=== PATIENT | male | born 1970 | race Caucasian/White ===

== ENCOUNTER 2017-10-19 14:02 | Emergency (ER) | payer BC, MEDICAID ==
[~2017-10-19] VITALS: Ht 175.3 cm; Wt 104.3 kg
[~2017-10-19 14:02] MED LIST: ASPIRIN 81 MG CHEW (CHILDREN'S ASA) ONE; HYDR-757 PO; LISI1TAB8 PO
--- OUTSIDE RECORDS SUMMARY | 2017-10-19 14:08 | XMS REPORT | Continuity of Care Document ---
Author Author [facility] Organization [facility] Address Unknown Phone Unavailable Allergies Active Description Code Type Severity Reaction Onset Reported/Identified Relationship to Patient Clinical Status Yes No Known Drug Allergies [id number] Drug Allergy Unknown N/A 06/24/2014 Medications There is no data. Problems Date Dx Coded Attending Type Code Diagnosis Diagnosed By 01/19/2008 EDWARDO STEWART DO 070.54 HEPATITIS C CHRONIC 01/19/2008 EDWARDO STEWART DO 401.1 HYPERTENSION, BENIGN ESSENTIAL 01/19/2008 EDWARDO STEWART DO 493.92 ASTHMA (ACUTE) EXACERBATION 03/01/2008 EDWARDO STEWART DO 724.5 BACKACHE UNSPECIFIED 06/24/2014 FERNANDEZ ENRIQUE APRN Ot 401.9 06/29/2014 EDWARDO STEWART DO 723.1 CERVICALGIA 06/29/2014 EDWARDO STEWART DO 790.29 OTHER ABNORMAL GLUCOSE Procedures There is no data. Results There is no data. Encounters ACCT No. Visit Date/Time Discharge Status Pt. Type Provider Facility Loc./Unit Complaint [id number] 06/24/2014 11:40:00 06/24/2014 13:02:00 DIS Emergency FERNANDEZ ENRIQUE APRN [facility] ER [id number] 06/24/2014 11:41:00 ACT Document Registration [id number] 06/29/2014 15:28:00 06/29/2014 23:59:59 [place] [id number] 10/13/2017 12:15:00 10/13/2017 23:59:59 CLS Outpatient STEPHANE AMAYA APRN [facility]
--- NOTE | 2017-10-19 14:29 | ED Chest Pain ---
General Chief Complaint: Chest Pain Stated Complaint: CHEST PAIN,FACIAL NUMBNESS Source: patient, family Exam Limitations: no limitations History of Present Illness Date Seen by Provider: October 19, 2017 Time Seen by Provider: 14:14 Initial Comments The patient presents to the ER by private conveyance with his and children. He was driving home from [place] when he started about 45 minutes ago to have all of her chest pain both arms hurting without radiation to his jaw or neck. He felt like he was working very hard to breathe very fast and was feeling numbness and tingling around the mouth. He does not have a history of lung disease such as asthma or COPD nor does he have a known history of coronary artery disease. He does have a known history of hypertension and he is been told that he is prediabetic. He does not follow with Dr. Bautista for over a year now and has not been on any medications for at least this long. He does not have any primary family history of early coronary disease however his dad did have heart attacks and strokes in his 60s. 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 He denies a history of anxiety disorder. He was previously prescribed hydrochlorothiazide and lisinopril according to records. He does not know if he has any thyroid disorder, hypercholesterolemia. Allergies and Home Medications Allergies Coded Allergies: No Known Drug Allergies (Unverified , 06/24/14) Home Medications Hydrocodone Bit/Acetaminophen 1 Each Tablet, 1 EA PO Q6H PRN for MILD PAIN Prescribed by: FERNANDEZ ENRIUQE on 06/24/14 1250 Lisinopril/Hydrochlorothiazide 1 Tab Tablet, 1 TAB PO DAILY Prescribed by: FERNANDEZ ENRIQUE on 06/24/14 1250 Patient Home Medication List Home Medication List Reviewed: Yes Review of Systems Constitutional: No chills, No diaphoresis EENTM: No Blurred Vision, No Double Vision Respiratory: Shortness of Air, SOA at Rest; Denies Wheezing Cardiovascular: See HPI, Chest Pain (all over, worse with deep inspiration); Denies Palpitations Gastrointestinal: Denies Abdomen Distended, Denies Constipated, Denies Diarrhea , Denies Nausea Musculoskeletal: No back pain, No joint pain Skin: No pruritus, No rash Psychiatric/Neurological: Denies Headache, Denies Numbness Past Jltliza-Sulssa-Drwfzy Hx Patient Social History Alcohol Use: Denies Use Recreational Drug Use: Yes 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 Smoking Status: Never a Smoker Seasonal Allergies Seasonal Allergies: No Past Medical History Hypertension Headaches /Migraines Chronic Back Pain Physical Exam Vital Signs Vital Signs - First Documented 10/19/17 14:02 Temp 97.8 Pulse 78 Resp 26 B/P (MAP) 214/128 (156) Pulse Ox 99 O2 Delivery Room Air Capillary Refill : General Appearance: WD/WN, Anxious HEENT: PERRL/EOMI, Normal ENT Inspection, Pharynx Normal Neck: Full Range of Motion, Non Tender, Supple Respiratory: Lungs Clear, Normal Breath Sounds, No Accessory Muscle Use, No Respiratory Distress, Other (chest pain is reproducible by direct palpation to anterior sternum and ribs) Cardiovascular: Regular Rate, Rhythm, No Edema Gastrointestinal: Normal Bowel Sounds, Non Tender, Soft Extremity: Normal Capillary Refill, Non Tender, No Pedal Edema Neurologic/Psychiatric: Alert, Oriented x3 Skin: Normal Color, Diaphoresis Progress/Results/Core Measures Results/Orders Lab Results Laboratory Tests Test 10/19/17 14:25 10/19/17 14:55 10/19/17 16:37 Range/Units White Blood Count 7.3 4.3-11.0 10^3/uL Red Blood Count 5.42 4.35-5.85 10^6/uL Hemoglobin 15.5 13.3-17.7 G/DL Hematocrit 44 40-54 % Mean Corpuscular Volume 81 80-99 FL Mean Corpuscular Hemoglobin 29 25-34 PG Mean Corpuscular Hemoglobin Concent 36 32-36 G/DL Red Cell Distribution Width 13.5 10.0-14.5 % Platelet Count 215 130-400 10^3/uL Mean Platelet Volume 9.9 7.4-10.4 FL Neutrophils (%) (Auto) 61 42-75 % Lymphocytes (%) (Auto) 29 12-44 % Monocytes (%) (Auto) 7 0-12 % Eosinophils (%) (Auto) 2 0-10 % Basophils (%) (Auto) 0 0-10 % Neutrophils # (Auto) 4.5 1.8-7.8 X 10^3 Lymphocytes # (Auto) 2.1 1.0-4.0 X 10^3 Monocytes # (Auto) 0.5 0.0-1.0 X 10^3 Eosinophils # (Auto) 0.2 0.0-0.3 10^3/uL Basophils # (Auto) 0.0 0.0-0.1 10^3/uL Prothrombin Time 12.0 L 12.2-14.7 SEC INR Comment 0.9 0.8-1.4 Activated Partial Thromboplast Time 25 24-35 SEC D-Dimer < 0.27 0.00-0.49 UG/ML Sodium Level 135 135-145 MMOL/L Potassium Level 3.8 3.6-5.0 MMOL/L Chloride Level 99 98-107 MMOL/L Carbon Dioxide Level 20 L 21-32 MMOL/L Anion Gap 16 H 5-14 MMOL/L Blood Urea Nitrogen 13 7-18 MG/DL Creatinine 0.97 0.60-1.30 MG/DL Estimat Glomerular Filtration Rate > 60 BUN/Creatinine Ratio 13 Glucose Level 467 *H 70-105 MG/DL Calcium Level 9.9 8.5-10.1 MG/DL Magnesium Level 1.8 1.8-2.4 MG/DL Total Bilirubin 0.6 0.1-1.0 MG/DL Aspartate Amino Transf (AST/SGOT) 14 5-34 U/L Alanine Aminotransferase (ALT/SGPT) 33 0-55 U/L Alkaline Phosphatase 70 40-136 U/L Myoglobin 18.3 10.0-92.0 NG/ML Troponin I < 0.30 < 0.30 <0.30 NG/ML Total Protein 7.9 6.4-8.2 GM/DL Albumin 4.7 H 3.2-4.5 GM/DL Urine Color YELLOW Urine Clarity CLEAR Urine pH 5 5-9 Urine Specific Clark 1.020 1.016-1.022 Urine Protein 2+ H NEGATIVE Urine Glucose (UA) 4+ H NEGATIVE Urine Ketones NEGATIVE NEGATIVE Urine Nitrite NEGATIVE NEGATIVE Urine Bilirubin NEGATIVE NEGATIVE Urine Urobilinogen NORMAL NORMAL MG/DL Urine Leukocyte Esterase NEGATIVE NEGATIVE Urine RBC (Auto) NEGATIVE NEGATIVE Urine RBC NONE /HPF Urine WBC NONE /HPF Urine Squamous Epithelial Cells RARE /HPF Urine Crystals NONE /LPF Urine Bacteria NEGATIVE /HPF Urine Casts NONE /LPF Urine Mucus NEGATIVE /LPF Urine Culture Indicated NO Urine Opiates Screen NEGATIVE NEGATIVE Urine Oxycodone Screen NEGATIVE NEGATIVE Urine Methadone Screen NEGATIVE NEGATIVE Urine Propoxyphene Screen NEGATIVE NEGATIVE Urine Barbiturates Screen NEGATIVE NEGATIVE Ur Tricyclic Antidepressants Screen NEGATIVE NEGATIVE Urine Phencyclidine Screen NEGATIVE NEGATIVE Urine Amphetamines Screen NEGATIVE NEGATIVE Urine Methamphetamines Screen NEGATIVE NEGATIVE Urine Benzodiazepines Screen NEGATIVE NEGATIVE Urine Cocaine Screen NEGATIVE NEGATIVE Urine Cannabinoids Screen NEGATIVE NEGATIVE My Orders Orders - SHIRIN MATHEWS Ekg Tracing (10/19/17 14:05) Aspirin Chewable Tablet (Baby Aspirin Ch (10/19/17 14:02) Cbc With Automated Diff (10/19/17 14:22) Magnesium (10/19/17 14:22) Chest 1 View, Ap/Pa Only (10/19/17 14:22) Cardiac Profile 1 (10/19/17 14:22) Comprehensive Metabolic Panel (10/19/17 14:22) Myoglobin Serum (10/19/17 14:22) Protime With Inr (10/19/17 14:22) Partial Thromboplastin Time (10/19/17 14:22) O2 (10/19/17 14:22) Monitor-Rhythm Ecg Trace Only (10/19/17 14:) Lipid Panel (10/20/17 06:00) Aspirin Chewable Tablet (Baby Aspirin Ch (10/19/17 14:30) Nitroglycerin 0.4 Mg Btl 25's (Nitrostat (10/19/17 14:30) Saline Lock/Iv-Start (10/19/17 14:22) Fibrin Degradation Products (10/19/17 14:22) Ua Culture If Indicated (10/19/17 14:54) Drug Screen Stat (Urine) (10/19/17 14:54) Troponin I (10/19/17 16:30) Ekg Tracing (10/19/17 16:30) Medications Given in ED Current Medications Medications Dose Ordered Sig/Betty Route Start Time Stop Time Status Last Admin Dose Admin Aspirin 81 mg STK-MED ONCE .ROUTE 10/19/17 14:02 10/19/17 14:07 DC 10/19/17 14:11 81 MG Nitroglycerin 0.4 mg UD PRN SL 10/19/17 14:30 10/19/17 15:00 0.4 MG Vital Signs/I&O 10/19/17 10/19/17 10/19/17 14:02 14:11 15:03 Temp 97.8 98.3 98.3 Pulse 78 Resp 26 B/P (MAP) 214/128 (156) Pulse Ox 99 O2 Delivery Room Air Progress Progress Note #1: Time: 14:30 Progress Note ED ACS score of 6; Low risk by the EDACS Score. If the patient also has: (1) EKG without new ischemic changes and (2) negative initial and 2-hour troponins, then this patient is safe for discharge to early outpatient follow-up investigation (or proceed to earlier inpatient testing). If EKG with ischemic changes or positive troponin, they are not low risk and require normal risk stratification. Differential includes a possible pulmonary embolus given his long road trip, pneumonia, anxiety attack. We'll get a 2 view chest x-ray as the initial EKG is unremarkable. Progress Note #2: Time: 15:30 Progress Note The patient's glucose was 467. We have checked urine and there are no ketones. He is not having any abdominal pain. We have not given him anything but aspirin and nitroglycerin and his blood pressure has already improved to 162/93. He is no longer tachycardic with a heart rate in the mid 60s. He is pain-free and no longer shortness of breath. We have counseled him to get back with a primary care doctor and discuss his diabetes. We will start him on some metformin 500 mg once a day. Initial ECG Impression Date: October 19, 2017 Initial ECG Impression Time: 14:15 Initial ECG Rate: 84 Initial ECG Rhythm: Normal Sinus Initial ECG Intervals: Normal Initial ECG Impression: Normal Initial ECG Comparisson: No Previous ECG Available Comment No ST elevation or depression EKG : EKG Time: 16:26 Rate: 72 Rhythm: Normal Sinus Intervals: Normal ECG Comparisson: No Previous ECG Available ECG Impression: Normal Comment No ST elevation or depression Diagnostic Imaging Diagonstic Imaging: Xray Plain Films/CT/US/NM/MRI: chest (2v) Comments Unremarkable 1 view chest. Reviewed: Reviewed by Me Consults : Consulting Physician: Shira TAPIA MD Consults Notes Discussed the case, diabetes, EKG labs and x-ray with Dr. Tapia, cardiology. He agrees with a two-hour delta troponin and follow-up within the next week in his office outpatient. Departure Impression Primary Impression: Chest pain Qualified Codes: R07.9 - Chest pain, unspecified Additional Impressions: Anxiety Diabetes Qualified Codes: E11.9 - Type 2 diabetes mellitus without complications Disposition: 01 HOME, SELF-CARE Condition: Improved Departure-Patient Inst. Decision time for Depature: 17:20 Referrals: Shira TAPIA MD ,LOCAL PHYSICIAN (PCP) Primary Care Physician Patient Instructions: Chest Pain That Is Not Caused by the Heart (DC), Diabetes Diet Add. Discharge Instructions: Please call the heart doctor tomorrow morning and request an appointment this week to further workup your risk for heart disease. These establish care and follow-up with a primary care provider within the next couple weeks to work on your diabetes, hypertension. plastics supervisor the metformin and take one 500 mg tablet daily until you see your primary care provider. All discharge instructions reviewed with patient and/or family. Voiced understanding. Scripts Metformin HCl (Metformin HCl) 500 Mg Tablet 500 MG PO DAILY for 30 Days, #30 TAB 0 Refills Prov: SHIRIN MATHEWS 10/19/17 Copy Copies To 1: Shira TAPIA MD, TITUS J October 19, 2017 14:29
[2017-10-19] MEDS ORDERED: NITROGLYCERIN 0.4 MG SL TABS BTL 25'S SL PRN (14:30)
[2017-10-19] MEDS ORDERED: ASPIRIN 81 MG CHEW (CHILDREN'S ASA) PO ONE (14:30)
[2017-10-19 14:31] LABS: BASOPHILS % (AUTO) 0 % (0-10); EOSINOPHILS # (AUTO) 0.2 10^3/uL (0.0-0.3); EOSINOPHILS % (AUTO) 2 % (0-10); HEMATOCRIT 44 % (40-54); HEMOGLOBIN 15.5 G/DL (13.3-17.7); LYMPHOCYTES # (AUTO) 2.1 X 10^3 (1.0-4.0); LYMPHOCYTES % (AUTO) 29 % (12-44); MEAN CORPUSCULAR HEMOGLOBIN 29 PG (25-34); MEAN CORPUSCULAR HGB CONC 36 G/DL (32-36); MEAN CORPUSCULAR VOLUME 81 FL (80-99); MEAN PLATELET VOLUME 9.9 FL (7.4-10.4); MONOCYTES # (AUTO) 0.5 X 10^3 (0.0-1.0); MONOCYTES % (AUTO) 7 % (0-12); NEUTROPHILS # (AUTO) 4.5 X 10^3 (1.8-7.8); NEUTROPHILS % (AUTO) 61 % (42-75); PLATELET COUNT 215 10^3/uL (130-400); RED BLOOD COUNT 5.42 10^6/uL (4.35-5.85); RED CELL DISTRIBUTION WIDTH 13.5 % (10.0-14.5); WHITE BLOOD COUNT 7.3 10^3/uL (4.3-11.0)
[2017-10-19 14:41] LABS: INR 0.9 (0.8-1.4)
[2017-10-19 14:50] LABS: ALANINE AMINOTRANSFERASE 33 U/L (0-55); ALBUMIN 4.7 GM/DL (3.2-4.5); ALKALINE PHOSPHATASE 70 U/L (40-136); BILIRUBIN,TOTAL 0.6 MG/DL (0.1-1.0); BUN/CREATININE RATIO 13; CALCIUM 9.9 MG/DL (8.5-10.1); CARBON DIOXIDE 20 MMOL/L (21-32); CHLORIDE 99 MMOL/L (98-107); CREATININE SERUM 0.97 MG/DL (0.60-1.30); GFR ESTIMATED > 60; MAGNESIUM 1.8 MG/DL (1.8-2.4); POTASSIUM 3.8 MMOL/L (3.6-5.0); SODIUM 135 MMOL/L (135-145); TOTAL PROTEIN 7.9 GM/DL (6.4-8.2)
[2017-10-19 14:54] LABS: GLUCOSE 467 MG/DL (70-105)
[2017-10-19 14:56] LABS: MYOGLOBIN SERUM 18.3 NG/ML (10.0-92.0)
[2017-10-19 15:02] LABS: BILIRUBIN,URINE NEGATIVE (NEGATIVE); CLARITY,URINE CLEAR; COLOR,URINE YELLOW; GLUCOSE, URINE (UA) 4+ (NEGATIVE); KETONES,URINE NEGATIVE (NEGATIVE); LEUKOCYTE ESTERASE ,URINE NEGATIVE (NEGATIVE); NITRITE,URINE NEGATIVE (NEGATIVE); PH,URINE 5 (5-9); PROTEIN,URINE 2+ (NEGATIVE); UROBILINOGEN,URINE NORMAL (NORMAL)
[2017-10-19 15:12] LABS: BACTERIA,URINE NEGATIVE /HPF; SQUAMOUS EPITHELIAL CELL,UR RARE /HPF
--- NOTE | 2017-10-19 15:17 | Diagnostic Imaging Report ---
EXAMINATION: Portable chest. COMPARISON: Prior study from the previous day. INDICATION: Left upper chest pain. FINDINGS: When compared to the prior examination, there has not been evidence of interval change. Heart size is stable without evidence of failure. Lungs demonstrate no focal consolidation. There is no large effusion. There is no evidence for a pneumothorax. No acute osseous abnormality is demonstrated. IMPRESSION: Stable radiographic appearance of the chest. No acute cardiopulmonary process demonstrated. Dictated by: Dictated on workstation # [id number]
[2017-10-19 15:20] LABS: AMPHETAMINE SCREEN, URINE NEGATIVE (NEGATIVE); BARBITURATE SCREEN URINE NEGATIVE (NEGATIVE); BENZODIAZEPINES SCREEN URINE NEGATIVE (NEGATIVE); CANNABINOID SCREEN, URINE NEGATIVE (NEGATIVE); COCAINE SCREEN URINE NEGATIVE (NEGATIVE); METHADONE STAT NEGATIVE (NEGATIVE); METHAMPHETAMINE SCREEN URINE S NEGATIVE (NEGATIVE); OPIATE SCREEN URINE NEGATIVE (NEGATIVE); OXYCODONE STAT NEGATIVE (NEGATIVE); PROPOXYPHENE STAT NEGATIVE (NEGATIVE); TRICYCLIC ANTIDEPRESSANTS SCRE NEGATIVE (NEGATIVE)
[2017-10-19] MEDS ORDERED: METF500T5 PO (17:25)
[2017-10-19 17:37] VITALS: BP 172/80
== END 2017-10-19 17:37 | disposition home or self-care (01) ==
LOC: EDUNIT# 14:02 → ER 14:03
DX: R07.9 Chest pain, unspecified (principal); F41.9 Anxiety disorder, unspecified; E11.9 Type 2 diabetes mellitus without complications; I10 Essential (primary) hypertension; G43.909 Migraine, unspecified, not intractable, without status migrainosus
CPT/HCPCS: 36415; 71045; 80053; 80306; 81000; 83735; 83874; 84484; 85025; 85379; 85610; 85730; 93005; 93041

== ENCOUNTER → 2017-11-06 | Outpatient (CLI) | payer MEDICAID ==
[~2017-11-06] VITALS: Ht 175.3 cm; Wt 104.3 kg
[~2017-11-06] MED LIST changes: -ASPIRIN 81 MG CHEW (CHILDREN'S ASA) ONE; +CATHETER FLUSH 10 ML SYR IV PRN; +METF500T5 PO; +REGADENOSON 0.4 MG/5 ML SYR (LEXISCAN) IV ONE
[2017-11-06] MEDS: CATHETER FLUSH 10 ML SYR IV PRN ×2 (08:09→09:44)
[2017-11-06 09:42] VITALS: BP 184/109
--- NOTE | 2017-11-06 15:03 | Cardiology Stress Test Report ---
Stress Test Report Type of NM Stress Test: Test Type: LEXISCAN 0.4MG/5ML Date of Procedure/Referring: Date of Procedure: November 06, 2017 PCP Shira Tapia MD Admitting Physician No,Local Physician Indications: Chest pain, diabetes, new onset hypertension, hyperlipidemia Baseline Heart Rate: 64 Baseline Blood Pressure: Blood Pressure Systolic: 184 Blood Pressure Diastolic: 109 Baseline EKG: Baseline EKG: sinus rhythm. Summary: The patient was brought to the stress lab after informed consent was taken. Stress test was performed according to the Lexiscan protocol. 0.4 mg of IV Lexiscan was given. Low-grade exercise was performed. Baseline EKG showed 64 bpm at sinus rhythm. Blood pressure 184/109 mmHg. Maximum blood pressure 185/ 121 mmHg. Maximum heart rate 109 BPM. Patient did not have any chest pain, EKG changes or arrhythmias noted during the stress test. 10.74 mCi of Myoview was given for rest imaging and 29.2 mCi of Myoview given for stress imaging. Transient ischemic dilatation score was 1.16. Ejection fraction 45-50 percent. Normal LV function with no wall motion abnormalities. Normal perfusion during rest and stress. SSS 0, SRS 0, SDS 0. Conclusion: Pharmacological stress test was negative for ischemia. Normal LV function. Uncontrolled blood pressure. Normal myocardial perfusion imaging during rest and stress. Shira TAPIA MD November 06, 2017 3:03 pm
== END ==
LOC: CARD 07:50
PROVIDERS: ATTEND Internal Medicine Interventional Cardiology
DX: E11.9 Type 2 diabetes mellitus without complications (principal); E78.00 Pure hypercholesterolemia, unspecified; I10 Essential (primary) hypertension; R07.89 Other chest pain; E66.01 Morbid (severe) obesity due to excess calories
CPT/HCPCS: 78452; 93017; 93306

== ENCOUNTER 2018-01-14 10:23 | Day surgery (SDC) | payer MEDICAID ==
[~2018-01-14] VITALS: Ht 175.3 cm; Wt 108.9 kg
[~2018-01-14 10:23] MED LIST changes: -CATHETER FLUSH 10 ML SYR IV PRN; -REGADENOSON 0.4 MG/5 ML SYR (LEXISCAN) IV ONE
[2018-01-14] MEDS ORDERED: NITROGLYCERIN 0.4 MG SL TABS BTL 25'S SL ONE (11:00)
[2018-01-14] MEDS ORDERED: ASPIRIN 81 MG CHEW (CHILDREN'S ASA) PO ONE (11:00)
[2018-01-14 11:01] LABS: BASOPHILS % (AUTO) 1 % (0-10); EOSINOPHILS # (AUTO) 0.2 10^3/uL (0.0-0.3); EOSINOPHILS % (AUTO) 3 % (0-10); HEMATOCRIT 42 % (40-54); HEMOGLOBIN 15.9 G/DL (13.3-17.7); LYMPHOCYTES # (AUTO) 2.6 X 10^3 (1.0-4.0); LYMPHOCYTES % (AUTO) 33 % (12-44); MEAN CORPUSCULAR HEMOGLOBIN 30 PG (25-34); MEAN CORPUSCULAR HGB CONC 38 G/DL (32-36); MEAN CORPUSCULAR VOLUME 80 FL (80-99); MEAN PLATELET VOLUME 9.6 FL (7.4-10.4); MONOCYTES # (AUTO) 0.6 X 10^3 (0.0-1.0); MONOCYTES % (AUTO) 8 % (0-12); NEUTROPHILS # (AUTO) 4.3 X 10^3 (1.8-7.8); NEUTROPHILS % (AUTO) 55 % (42-75); PLATELET COUNT 254 10^3/uL (130-400); RED BLOOD COUNT 5.26 10^6/uL (4.35-5.85); RED CELL DISTRIBUTION WIDTH 13.1 % (10.0-14.5); WHITE BLOOD COUNT 7.8 10^3/uL (4.3-11.0)
[2018-01-14] MEDS ORDERED: NS 250 ML (IVPB) BAG IV ONE (11:15)
[2018-01-14] MEDS ORDERED: morphine INJ 10 MG/ML 1ML (SYR OR VIAL) IVP ONE (11:15)
[2018-01-14] MEDS ORDERED: IOHEXOL 350 MG/ML 150 ML (OMNIPAQUE 350) VIAL IV ONE (11:15)
--- NOTE | 2018-01-14 11:16 | ED Chest Pain ---
General Chief Complaint: Chest Pain Stated Complaint: PAIN IN BOTH ARMS Nursing Triage Note: PT CO OF CHEST PAIN AND BILATERAL ARM PAIN STATES WORSE ON L THAN R, PT STATES STARTED ABOUT 0730 THIS AM. RATES PAIN 10/10 Nursing Sepsis Screen: No Definite Risk Source: patient Exam Limitations: no limitations History of Present Illness Date Seen by Provider: Jan 14, 2018 Time Seen by Provider: 11:13 Initial Comments To ER with central chest pain and bilateral arm pain. This awakened him from sleep at 7 AM this morning. Pain is in the central chest and left arm greater than right arm.. Rates pain a 10 out of 10. No pain in the back. No history of this. No shortness of breath. Timing/Duration: 4-6 hours Severity/Quality: moderate Location: central ASA po CHARGE HISTOTECHNOLOGIST: No NTG SL CHARGE HISTOTECHNOLOGIST: No Associated Symptoms: nausea/vomiting Allergies and Home Medications Allergies Coded Allergies: No Known Drug Allergies (Unverified , 06/24/14) Home Medications Amlodipine Besylate 5 Mg Tablet, 5 MG PO DAILY, (Reported) Ibuprofen 200 Mg Tablet, 400-600 MG PO TID PRN for PAIN-MILD, (Reported) Metformin HCl 500 Mg Tablet, 500 MG PO DAILY, (Reported) LAST FILLED #30 10-20-17 Patient Home Medication List Home Medication List Reviewed: Yes Review of Systems Constitutional: see HPI; No chills, No fever EENTM: No Symptoms Reported Respiratory: No Symptoms Reported Cardiovascular: See HPI, Chest Pain Gastrointestinal: No Symptoms Reported Genitourinary: No Symptoms Reported Musculoskeletal: no symptoms reported Skin: no symptoms reported Psychiatric/Neurological: No Symptoms Reported Endocrine: No Symptoms Reported Past Ifxyezf-Leuhmg-Rrmabr Hx Patient Social History 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 Recent Foreign Travel: No Contact w/Someone Who Travel: No Recent Infectious Disease Expo: No Seasonal Allergies Seasonal Allergies: No Past Medical History Surgeries: No Respiratory: No Cardiac: Yes Hypertension Neurological: Yes Headaches /Migraines Gastrointestinal: No Musculoskeletal: Yes (CHRONIC NECK PAIN) Chronic Back Pain Endocrine: No Cancer: No Psychosocial: No Blood Disorders: No Physical Exam Vital Signs Vital Signs - First Documented 01/14/18 10:45 Temp 97.2 Pulse 79 Resp 18 B/P (MAP) 208/126 (153) Pulse Ox 99 Capillary Refill : Less Than 3 Seconds Height, Weight, BMI Height: 5'9.00" Weight: 240lbs. 0.0oz. 108.232986od; 34.0 BMI Method:Stated General Appearance: No Apparent Distress, WD/WN HEENT: PERRL/EOMI, TMs Normal Neck: Full Range of Motion, Normal Inspection Respiratory: No Accessory Muscle Use, No Respiratory Distress Cardiovascular: Regular Rate, Rhythm, Normal Peripheral Pulses Gastrointestinal: Normal Bowel Sounds, Non Tender, Soft Extremity: Normal Capillary Refill, Normal Inspection Neurologic/Psychiatric: Alert, Oriented x3 Skin: Normal Color, Warm/Dry Other comments Radial pulses are equal. Progress/Results/Core Measures Results/Orders Lab Results Laboratory Tests Test 01/14/18 10:55 Range/Units White Blood Count 7.8 4.3-11.0 10^3/uL Red Blood Count 5.26 4.35-5.85 10^6/uL Hemoglobin 15.9 13.3-17.7 G/DL Hematocrit 42 40-54 % Mean Corpuscular Volume 80 80-99 FL Mean Corpuscular Hemoglobin 30 25-34 PG Mean Corpuscular Hemoglobin Concent 38 H 32-36 G/DL Red Cell Distribution Width 13.1 10.0-14.5 % Platelet Count 254 130-400 10^3/uL Mean Platelet Volume 9.6 7.4-10.4 FL Neutrophils (%) (Auto) 55 42-75 % Lymphocytes (%) (Auto) 33 12-44 % Monocytes (%) (Auto) 8 0-12 % Eosinophils (%) (Auto) 3 0-10 % Basophils (%) (Auto) 1 0-10 % Neutrophils # (Auto) 4.3 1.8-7.8 X 10^3 Lymphocytes # (Auto) 2.6 1.0-4.0 X 10^3 Monocytes # (Auto) 0.6 0.0-1.0 X 10^3 Eosinophils # (Auto) 0.2 0.0-0.3 10^3/uL Basophils # (Auto) 0.0 0.0-0.1 10^3/uL Prothrombin Time 12.0 L 12.2-14.7 SEC INR Comment 0.9 0.8-1.4 Activated Partial Thromboplast Time 27 24-35 SEC Sodium Level 135 135-145 MMOL/L Potassium Level 4.0 3.6-5.0 MMOL/L Chloride Level 101 98-107 MMOL/L Carbon Dioxide Level 19 L 21-32 MMOL/L Anion Gap 15 H 5-14 MMOL/L Blood Urea Nitrogen 18 7-18 MG/DL Creatinine 0.83 0.60-1.30 MG/DL Estimat Glomerular Filtration Rate > 60 BUN/Creatinine Ratio 22 Glucose Level 296 H 70-105 MG/DL Calcium Level 9.9 8.5-10.1 MG/DL Corrected Calcium 9.6 8.5-10.1 MG/DL Magnesium Level 1.9 1.8-2.4 MG/DL Total Bilirubin 0.5 0.1-1.0 MG/DL Aspartate Amino Transf (AST/SGOT) 23 5-34 U/L Alanine Aminotransferase (ALT/SGPT) 50 0-55 U/L Alkaline Phosphatase 86 40-136 U/L Myoglobin 14.3 10.0-92.0 NG/ML Troponin I < 0.30 <0.30 NG/ML Total Protein 8.1 6.4-8.2 GM/DL Albumin 4.4 3.2-4.5 GM/DL Amylase Level 35 25-125 U/L Lipase 76 8-78 U/L My Orders Orders - FERNANDEZ ENRIQUE SITE RELIABILITY ENGINEER Cbc With Automated Diff (01/14/18 10:48) Magnesium (01/14/18 10:48) Chest 1 View, Ap/Pa Only (01/14/18 10:48) Ekg Tracing (01/14/18 10:48) Cardiac Profile 1 (01/14/18 10:48) Comprehensive Metabolic Panel (01/14/18 10:48) Myoglobin Serum (01/14/18 10:48) Protime With Inr (01/14/18 10:48) Partial Thromboplastin Time (01/14/18 10:48) O2 (01/14/18 10:48) Monitor-Rhythm Ecg Trace Only (01/14/18 10:48) Lipid Panel (01/15/18 06:00) Aspirin Chewable Tablet (Baby Aspirin Ch (01/14/18 11:00) Saline Lock/Iv-Start (01/14/18 10:48) Lipase (01/14/18 10:48) Amylase (01/14/18 10:48) Nitroglycerin 0.4 Mg Btl 25's (Nitrostat (01/14/18 11:00) Morphine Injection (Morphine Injection (01/14/18 11:15) Ct Angio Chest W (01/14/18 11:04) Iohexol Injection (Omnipaque 350 Mg/Ml 1 (01/14/18 11:15) Ns (Ivpb) (Sodium Chloride 0.9%) (01/14/18 11:15) Lorazepam Injection (Ativan Injection) (01/14/18 12:15) Medications Given in ED Current Medications Medications Dose Ordered Sig/Betty Route Start Time Stop Time Status Last Admin Dose Admin Aspirin 324 mg ONCE ONCE PO 01/14/18 11:00 01/14/18 11:01 DC 01/14/18 11:20 324 MG Iohexol 125 ml ONCE ONCE IV 01/14/18 11:15 01/14/18 11:16 DC 01/14/18 11:25 125 ML Morphine Sulfate 5 mg ONCE ONCE IVP 01/14/18 11:15 01/14/18 11:16 DC 01/14/18 11:20 5 MG Nitroglycerin 0.4 mg STK-MED ONCE SL 01/14/18 11:00 01/14/18 11:03 DC 01/14/18 11:03 0.4 MG Sodium Chloride 250 ml ONCE ONCE IV 01/14/18 11:15 01/14/18 11:16 DC 01/14/18 11:25 80 ML Vital Signs/I&O 01/14/18 10:45 Temp 97.2 Pulse 79 Resp 18 B/P (MAP) 208/126 (153) Pulse Ox 99 Blood Pressure Mean: 153 Departure Communication (Admissions) Time/Spoke to Admitting Phy: 12:[address] Escamilla wildlife control agent for hospitalist. She agrees to admit the patient if cardiology feels additional cardiology workup is warranted. Time/Spoke to Consulting Phy: 12:[address] Tapia. Despite the negative stress test in October of this year, given the patient's risk factors of obesity, diabetes, hypertension, family history of heart disease who put him in for cardiac catheterization. Family Conversation 1208-his troponin is negative despite 4 hours of constant pain. states that he's been having chest and back pain as well as bilateral arm pain over the weekend. He states that coughing sneezing and straining tends to worsen his pain down both of his arms. He has been told that he has bulging disks in his neck and believes this could be part of the cause. Also, he and his states that he's been having belching episodes, dry heaving and they're concerned about a GI cause for this pain. I did discuss with him possible etiologies including cervical radiculopathy versus esophageal spasm. He does not have a local physician. He does have a history of high blood pressure and he takes amlodipine 5 mg daily but is still hypertensive. He states that he gets very anxious and was given a prescription for anxiety medication one time that did help with blood pressure is anxiety was controlled. He did have a negative pharmacologic stress test here recently. NAME: HUSSEIN ARGUELLO [facility] REC#: [id number] PT STATUS: REG ER : 1970 PHYSICIAN: FERNANDEZ ENRIQUE APRN ADMIT DATE: 01/14/18/ER Draft Date of Exam:01/14/18 CT ANGIO CHEST W PROCEDURE: CT angiography of the chest with contrast. TECHNIQUE: Multiple contiguous axial images were obtained through the chest after uneventful bolus administration of intravenous contrast. Reconstructed CTA MIP acquisitions were also performed. INDICATION: Bilateral arm pain and chest pain. No prior studies are available for comparison. The thoracic aorta is normal in caliber. No dissection is identified. The pulmonary arterial system is without thromboembolism. No filling defects are seen within central, lobar or segmental branches. No pericardial or pleural fluid is identified. No axillary lymphadenopathy is seen. No definite hilar or mediastinal lymphadenopathy is identified. No pulmonary infiltrates, nodules or masses are seen. Impression: Unremarkable CT angiogram of the chest. There is no evidence of thoracic aortic dissection or pulmonary embolism. Dictated on workstation # [id number] Dict: 01/14/18 1141 Trans: 01/14/18 1149 [facility] [id number] Interpreted by: ANDIE LONDONO MD Electronically signed by: Impression Primary Impression: Chest pain Disposition: 01 HOME, SELF-CARE Condition: Stable Admissions Decision to Admit Reason: Admit from ER (General) Decision to Admit/Date: Jan 14, 2018 Time/Decision to Admit Time: 12:00 Departure-Patient Inst. Referrals: NO,LOCAL PHYSICIAN (PCP/Family) Primary Care Physician FERNANDEZ ENRIQUE APRN Jan 14, 2018 11:16
--- NOTE | 2018-01-14 11:17 | Diagnostic Imaging Report ---
Indication: Elevated blood pressure. Time of exam: 11:07 AM Correlation is made with prior study from 10/19/2017. The heart size is normal. The pulmonary vascularity is unremarkable. The lungs are clear. No infiltrate, effusion or pneumothorax is detected. Impression: No acute cardiopulmonary process is detected. Dictated by: Dictated on workstation # [id number]
[2018-01-14 11:23] LABS: INR 0.9 (0.8-1.4)
[2018-01-14 11:28] LABS: ALANINE AMINOTRANSFERASE 50 U/L (0-55); ALBUMIN 4.4 GM/DL (3.2-4.5); ALKALINE PHOSPHATASE 86 U/L (40-136); AMYLASE 35 U/L (25-125); BILIRUBIN,TOTAL 0.5 MG/DL (0.1-1.0); BUN/CREATININE RATIO 22; CALCIUM 9.9 MG/DL (8.5-10.1); CARBON DIOXIDE 19 MMOL/L (21-32); CHLORIDE 101 MMOL/L (98-107); CREATININE SERUM 0.83 MG/DL (0.60-1.30); GFR ESTIMATED > 60; GLUCOSE 296 MG/DL (70-105); LIPASE 76 U/L (8-78); MAGNESIUM 1.9 MG/DL (1.8-2.4); SODIUM 135 MMOL/L (135-145); TOTAL PROTEIN 8.1 GM/DL (6.4-8.2)
[2018-01-14 11:34] LABS: MYOGLOBIN SERUM 14.3 NG/ML (10.0-92.0)
--- NOTE | 2018-01-14 11:49 | Diagnostic Imaging Report ---
PROCEDURE: CT angiography of the chest with contrast. TECHNIQUE: Multiple contiguous axial images were obtained through the chest after uneventful bolus administration of intravenous contrast. Reconstructed CTA MIP acquisitions were also performed. INDICATION: Bilateral arm pain and chest pain. No prior studies are available for comparison. The thoracic aorta is normal in caliber. No dissection is identified. The pulmonary arterial system is without thromboembolism. No filling defects are seen within central, lobar or segmental branches. No pericardial or pleural fluid is identified. No axillary lymphadenopathy is seen. No definite hilar or mediastinal lymphadenopathy is identified. No pulmonary infiltrates, nodules or masses are seen. Impression: Unremarkable CT angiogram of the chest. There is no evidence of thoracic aortic dissection or pulmonary embolism. Dictated by: Dictated on workstation # [id number]
[2018-01-14] MEDS ORDERED: LORazepam INJ 2 MG/ML (ATIVAN) VIAL IVP PRN (12:15)
--- NOTE | 2018-01-14 13:06 | History & Physical-Hospitalist ---
History of Present Illness HPI/Chief Complaint Pt is a 47yoCM with a PMH of HTN and NIDDMII who presented to the ER with CC of pain radiating down both arms. He states he woke up with this pain and attempted to stretch and take a hot shower without improvement prompting him to present to the ER. He did not try any Tylenol or Advil at home. He pain started to go throughout his back and chest as well. He was seen here for similar symptoms in October and followed up with Dr Tapia for a stress test which was negative. He also reports he has had neck and back pain for years and was told 1.5 years ago that he should have surgery for his neck issues but has not followed up because he did not have insurance. His pain improved upon arrival to the ER with Nitro x3 and morphine. Source: patient Date Seen 01/14/18 Time Seen by Provider: 12:40 Attending Physician Anibal Morales MD PCP No,Local Physician Referring Physician Date of Admission Jan 14, 2018 at 12:16 Home Medications & Allergies Home Medications Reviewed patient Home Medication Reconciliation performed by pharmacy medication reconciliations photovoltaic installation technician and/or nursing. Patients Allergies have been reviewed. 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 Smoking Status: Never a Smoker Recent Foreign Travel: No Contact w/other who traveled: No Recent Infectious Disease Expo: No Seasonal Allergies Seasonal Allergies: No Past Medical History Surgeries: Gallbladder Cardiac: Hypertension Neurological: Headaches /Migraines Musculoskeletal: Arthritis, Chronic Back Pain History of Blood Disorders: No Family History Reviewed and Corrections made Heart Disease, Cancer, CAD Under 55 Years Old, Diabetes, Renal Disease Review of Systems Constitutional: no symptoms reported EENTM: no symptoms reported Respiratory: no symptoms reported Cardiovascular: chest pain Gastrointestinal: no symptoms reported Genitourinary: no symptoms reported Musculoskeletal: see HPI, back pain, muscle stiffness, other (shoulder pain) Skin: no symptoms reported Psychiatric/Neurological: Anxiety Physical Exam Physical Exam Vital Signs Vital Signs - First Documented 01/14/18 10:45 Temp 97.2 Pulse 79 Resp 18 B/P (MAP) 208/126 (153) Pulse Ox 99 Capillary Refill : Less Than 3 Seconds Height, Weight, BMI Height: 5'9.00" Weight: 240lbs. 0.0oz. 108.607717cg; 34.0 BMI Method:Stated General Appearance: No Apparent Distress, WD/WN HEENT: PERRL/EOMI, Moist Mucous Membranes Neck: Non Tender, Supple Respiratory: Lungs Clear, No Respiratory Distress Cardiovascular: Regular Rate, Rhythm, No Murmur Gastrointestinal: Normal Bowel Sounds, Non Tender, Soft Extremity: Normal Capillary Refill, No Calf Tenderness, No Pedal Edema Neurologic/Psychiatric: Alert, Oriented x3, Normal Mood/Affect Skin: Normal Color, Warm/Dry, Tattoos/Piercings Results Results/Procedures Labs Laboratory Tests 01/14/18 10:55 Patient resulted labs reviewed. Imaging: Reviewed Imaging Report Assessment/Plan Admission Diagnosis Chest pain Admission Status: Observation Diagnosis/Problems Diagnosis/Problems (1) Chest pain Status: Acute Assessment & Plan: Previous negative stress test CTA negative for dissection Stress in October negative Dr Tpaia consulted, appreciate recs Plan for cardiac cath tomorrow Qualifiers: Chest pain type: unspecified Qualified Codes: R07.9 - Chest pain, unspecified (2) Non-insulin dependent type 2 diabetes mellitus Status: Chronic Assessment & Plan: On metformin as outpatient Will use Sliding Scale with plan for cath tomorrow (3) Hypertensive urgency Status: Resolved Assessment & Plan: BP improved with nitro Trend Resume home BPs meds Clinical Quality Measures AMI/AHF: ASA po Prior to arrival: ANIBAL Herr MD Jan 14, 2018 13:06
--- NOTE | 2018-01-14 13:09 | Consultation-Cardiology ---
HPI-Cardiology Cardiology Consultation: Date of Consultation 01/14/18 Date of Admission Attending Physician Annamaria Morales MD Admitting Physician No,Local Physician Consulting Physician Shira TAPIA MD HPI: Time Seen by Provider: 12:15 Chief Complaint: Chest pain This is a 47-year-old gentleman who has history of severely uncontrolled hypertension and diabetes. He denies active smoking or hyperlipidemia. He presents with prolonged episode of chest pain. He previously presented with chest pain and a stress test was unremarkable. His been having chest pain for 4 hours with radiation to both arms left more than right. Improvement with morphine and nitroglycerin. Blood pressure was severely elevated at systolic [address] angiography ruled out pulmonary embolism and aortic dissection. Review of Systems-Cardiology Review of Systems Constitutional: As described under HPI; No As described under HPI, No no symptoms reported, No chills, No fever, No lightheadedness Eyes: No As described under HPI, No no symptoms reported, No blindness, No blurred vision, No contact lenses, No drainage, No decreased acuity, No foreign body sensation, No pain, No vision change Ears/Nose/Throat: No As described under HPI, No no symptoms reported, No chronic hearing loss, No ear discharge, No ear pain, No nasal drainage, No ulcerations Respiratory: No no symptoms reported; As described under HPI; No As described under HPI, No cough, No orthopnea, No shortness of breath, No SOB with excertion Cardiovascular: No no symptoms reported; As described under HPI; No As described under HPI; chest pain; No edema, No irregular heart rate, No lightheadedness, No palpitations Gastrointestinal: No no symptoms reported, No As described under HPI, No abdomen distended, No abdominal pain, No blood streaked bowels, No constipation , No diarrhea, No nausea, No vomiting, No stool coloration changes Genitourinary: No As described under HPI, No burning, No dysuria, No discharge , No frequency, No flank pain, No hematuria, No urgency Skin: No rash, No skin related problems, No ulcerations Psychiatric/Neurological: No anxiety, No depression, No seizure, No focal weakness, No syncope Hematologic: No bleeding abnormalities XIM-Kofvwr-Osggnt Hx Patient Social History 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 Recent Foreign Travel: No Recent Infectious Disease Expo: No Hospitalization with Isolation: Denies Past Medical History PMH As described under Assessment. Allergies and Home Medications Allergies Coded Allergies: No Known Drug Allergies (Unverified , 06/24/14) Home Medications Hydrocodone Bit/Acetaminophen 1 Each Tablet, 1 EA PO Q6H PRN for MILD PAIN Prescribed by: FERNANDEZ ENRIQUE on 06/24/14 1250 Lisinopril/Hydrochlorothiazide 1 Tab Tablet, 1 TAB PO DAILY Prescribed by: FERNANDEZ ENRIQUE on 06/24/14 1250 Metformin HCl 500 Mg Tablet, 500 MG PO DAILY Prescribed by: SHIRIN MATHEWS on 10/19/17 1725 Patient Home Medication List Home Medication List Reviewed: Yes Physical Exam-Cardiology Physical Exam Vital Signs/I&O 01/14/18 10:45 Temp 97.2 Pulse 79 Resp 18 B/P (MAP) 208/126 (153) Pulse Ox 99 Capillary Refill : Less Than 3 Seconds Constitutional: appears stated age; No apparent distress; well-developed, well- nourished HEENT: PERRL; No discharge; hearing is well preserved, oral hygience is good; No ulceration, No xanthelasmas are seen Neck: No carotid bruit; carotid pulses are 2 + bilaterally Respiratory: No accessory muscle use, No respiratory distress, No chest tender , No chest expansion is symmetric; chest is bilaterally symmetric; No lungs clear to percussion; lungs clear to auscultation; No crackles, No rhonchi, No rales, No stridor, No wheezing, No pleural rub, No other Cardiovascular: regular rate-rhythm; No irregularly irregular, No extra beats, No parasternal heave is noted, No JVD, No edema, No bradycardia, No tachycardia , No point of maximal impulse, No cardiac thrills are palpable; S1 and S2; No gallop/S3, No gallop/S4, No diastolic murmur, No systolic murmur, No friction rub, No click, No other Gastrointestinal: No tender, No soft, No round, No distended, No pulsatile mass , No organomegaly, No guarding, No rebound, No tenderness, No hernia, No mass, No audible bowel sounds, No abnormal bowel sounds, No abdominal bruits, No spleenomegaly, No other Rectal: deferred Extremities: No normal range of motion, No non-tender, No normal inspection, No pedal edema, No calf tenderness, No normal capillary refill, No pelvis stable , No calf tenderness, No inflammation, No pedal edema, No slow capillary refill , No swelling, No other, No abrasion, No clubbing, No cyanosis, No ecchymosis, No laceration, No no lower extremity edema bilateral, No significant edema, No tenderness, No wound Neurologic/Psychiatric: no motor/sensory deficits, alert, normal mood/affect, oriented x 3, power is 5/5 both on sides Skin: No normal color, No warm/dry, No cyanosis, No cool, No diaphoresis, No damp, No ecchymosis, No jaundice, No mottled, No pallor, No rash, No tattoos/ piercings, No ulcerations, No rash on exposed areas, No ulcerations on exposed areas, No other Data Review Labs Laboratory Tests 01/14/18 10:55: White Blood Count 7.8, Red Blood Count 5.26, Hemoglobin 15.9, Hematocrit 42, Mean Corpuscular Volume 80, Mean Corpuscular Hemoglobin 30, Mean Corpuscular Hemoglobin Concent 38H, Red Cell Distribution Width 13.1, Platelet Count 254, Mean Platelet Volume 9.6, Neutrophils (%) (Auto) 55, Lymphocytes (%) (Auto) 33, Monocytes (%) (Auto) 8, Eosinophils (%) (Auto) 3, Basophils (%) (Auto) 1, Neutrophils # (Auto) 4.3, Lymphocytes # (Auto) 2.6, Monocytes # (Auto) 0.6, Eosinophils # (Auto) 0.2, Basophils # (Auto) 0.0, Prothrombin Time 12.0L, INR Comment 0.9, Activated Partial Thromboplast Time 27, Sodium Level 135, Potassium Level 4.0, Chloride Level 101, Carbon Dioxide Level 19L, Anion Gap 15H , Blood Urea Nitrogen 18, Creatinine 0.83, Estimat Glomerular Filtration Rate > 60, BUN/Creatinine Ratio 22, Glucose Level 296H, Calcium Level 9.9, Corrected Calcium 9.6, Magnesium Level 1.9, Total Bilirubin 0.5, Aspartate Amino Transf ( AST/SGOT) 23, Alanine Aminotransferase (ALT/SGPT) 50, Alkaline Phosphatase 86, Myoglobin 14.3, Troponin I < 0.30, Total Protein 8.1, Albumin 4.4, Amylase Level 35, Lipase 76 ECG Impression ECG Initial ECG Rhythm: Normal Sinus Initial ECG Impression: Nonspecific Changes A/P-Cardiology Assessment/Admission Diagnosis Unstable angina, Severe hypertension refractory to medical therapy, Diabetes Plan I had a long discussion with the patient and family. Patient is at have diabetes and significant risk factors for CAD, there is a 7 percent chance of having balanced ischemia and an unremarkable myocardial perfusion imaging. He is having recurrent or longer episodes of chest pain therefore I have recommended that we perform coronary angiography. All risks and complication were explained in detail including bleeding, vascular damage, stroke, [place] and even . Once patient accepted all risks, informed consent was taken. Aortic dissection and pulmonary embolism has been ruled out with a negative CT angiography. Hypertension: patient is already on lisinopril and hydrochlorothiazide. Will start amlodipine. Patient will require renal angiography which was performed with coronary angiography. Diabetes: Uncontrolled. Defer to Dr. Morales. Thank you for your consultation. Please call me if you have any questions. Julissa Tapia MD, FACP, FACC, FSCAI, FHRS, CCDS Interventional Cardiology Cardiac Electrophysiology Vascular Medicine and Endovascular Interventions Clinical Quality Measures AMI/AHF: ASA po Prior to arrival: Shira Manrique MD Jan 14, 2018 1:09 pm
[2018-01-14 13:10] VITALS: BP 155/92
[2018-01-14] MEDS ORDERED: CATHETER FLUSH 10 ML SYR IV PRN (13:30)
[2018-01-14] MEDS ORDERED: METF500T5 PO (13:31)
[2018-01-14] MEDS ORDERED: IBUP-30 PO (13:31)
[2018-01-14] MEDS ORDERED: AMLO5TAB2 PO (13:32)
--- OUTSIDE RECORDS SUMMARY | 2018-01-14 14:01 | XMS REPORT | Continuity of Care Document ---
Author Author [facility] Address Unknown Phone Unavailable Allergies Active Description Code Type Severity Reaction Onset Reported/Identified Relationship to Patient Clinical Status Yes No Known Drug Allergies [id number] Drug Allergy Unknown N/A 06/24/2014 Medications There is no data. Problems Date Dx Coded Attending Type Code Diagnosis Diagnosed By 01/19/2008 EDWARDO STEWART DO 070.54 HEPATITIS C CHRONIC 01/19/2008 EDWARDO STEWART DO 401.1 HYPERTENSION, BENIGN ESSENTIAL 01/19/2008 EDWARDO STEWART DO 493.92 ASTHMA (ACUTE) EXACERBATION 03/01/2008 EDWARDO STEWART DO 724.5 BACKACHE UNSPECIFIED 06/24/2014 FERNANDEZ ENRIQUE APRN Ot 401.9 HYPERTENSION NOS 06/29/2014 EDWARDO STEWART DO 723.1 CERVICALGIA 06/29/2014 EDWARDO STEWART DO 790.29 OTHER ABNORMAL GLUCOSE 10/19/2017 SHIRIN MATHEWS MD Ot E11.9 TYPE 2 DIABETES MELLITUS WITHOUT COMPLIC 10/19/2017 SHIRIN MATHEWS MD Ot F41.9 ANXIETY DISORDER, UNSPECIFIED 10/19/2017 SHIRIN MATHEWS MD Ot G43.909 MIGRAINE, UNSP, NOT INTRACTABLE, WITHOUT 10/19/2017 SHIRIN MATHEWS MD Ot I10 ESSENTIAL (PRIMARY) HYPERTENSION 10/19/2017 SHIRIN MATHEWS MD Ot R07.9 CHEST PAIN, UNSPECIFIED 10/21/2017 SHIRIN MATHEWS MD Ot E11.9 TYPE 2 DIABETES MELLITUS WITHOUT COMPLIC 10/21/2017 SHIRIN MATHEWS MD Ot F41.9 ANXIETY DISORDER, UNSPECIFIED 10/21/2017 SHIRIN MATHEWS MD Ot G43.909 MIGRAINE, UNSP, NOT INTRACTABLE, WITHOUT 10/21/2017 SHIRIN MATHEWS MD Ot I10 ESSENTIAL (PRIMARY) HYPERTENSION 10/21/2017 SHIRIN MATHEWS MD Ot R07.9 CHEST PAIN, UNSPECIFIED 11/07/2017 Shira CARIAS MD Ot E11.9 TYPE 2 DIABETES MELLITUS WITHOUT COMPLIC 11/07/2017 Shira CARIAS MD Ot E66.01 MORBID (SEVERE) OBESITY DUE TO EXCESS CA 11/07/2017 Shira CARIAS MD Ot E78.00 PURE HYPERCHOLESTEROLEMIA, UNSPECIFIED 11/07/2017 Shira CARIAS MD Ot I10 ESSENTIAL (PRIMARY) HYPERTENSION 11/07/2017 Shira CARIAS MD Ot R07.89 OTHER CHEST PAIN 11/25/2017 Shira CARIAS MD Ot E11.9 TYPE 2 DIABETES MELLITUS WITHOUT COMPLIC 11/25/2017 Shira CARIAS MD Ot E66.01 MORBID (SEVERE) OBESITY DUE TO EXCESS CA 11/25/2017 Shira CARIAS MD Ot E78.00 PURE HYPERCHOLESTEROLEMIA, UNSPECIFIED 11/25/2017 Shira CARIAS MD Ot I10 ESSENTIAL (PRIMARY) HYPERTENSION 11/25/2017 Shira CARIAS MD Ot R07.89 OTHER CHEST PAIN Procedures There is no data. Results Test Result Range Complete blood count (CBC) with automated white blood cell (WBC) differential - 10/19/17 14:25 Blood leukocytes automated count (number/volume) 7.3 10*3/uL 4.3-11.0 Blood erythrocytes automated count (number/volume) 5.42 10*6/uL 4.35-5.85 Venous blood hemoglobin measurement (mass/volume) 15.5 g/dL 13.3-17.7 Blood hematocrit (volume fraction) 44 % 40-54 Automated erythrocyte mean corpuscular volume 81 [foz_us] 80-99 Automated erythrocyte mean corpuscular hemoglobin (mass per erythrocyte) 29 pg 25-34 Automated erythrocyte mean corpuscular hemoglobin concentration measurement ( mass/volume) 36 g/dL 32-36 Automated erythrocyte distribution width ratio 13.5 % 10.0-14.5 Automated blood platelet count (count/volume) 215 10*3/uL 130-400 Automated blood platelet mean volume measurement 9.9 [foz_us] 7.4-10.4 Automated blood neutrophils/100 leukocytes 61 % 42-75 Automated blood lymphocytes/100 leukocytes 29 % 12-44 Blood monocytes/100 leukocytes 7 % 0-12 Automated blood eosinophils/100 leukocytes 2 % 0-10 Automated blood basophils/100 leukocytes 0 % 0-10 Blood neutrophils automated count (number/volume) 4.5 10*3 1.8-7.8 Blood lymphocytes automated count (number/volume) 2.1 10*3 1.0-4.0 Blood monocytes automated count (number/volume) 0.5 10*3 0.0-1.0 Automated eosinophil count 0.2 10*3/uL 0.0-0.3 Automated blood basophil count (count/volume) 0.0 10*3/uL 0.0-0.1 PT panel in platelet poor plasma by coagulation assay - 10/19/17 14:25 Prothrombin time (PT) in platelet poor plasma by coagulation assay 12.0 s 12.2-14.7 INR in platelet poor plasma or blood by coagulation assay 0.9 0.8-1.4 Activated partial thromboplastin time (aPTT) in platelet poor plasma bycoagulation assay - 10/19/17 14:25 Activated partial thromboplastin time (aPTT) in platelet poor plasma bycoagulation assay 25 s 24-35 Fibrin D-dimer FEU measurement in platelet poor plasma (mass/volume) - 14:25 Fibrin D-dimer FEU measurement in platelet poor plasma (mass/volume) < ug/mL 0.00-0.49 Comprehensive metabolic panel - 10/19/17 14:25 Serum or plasma sodium measurement (moles/volume) 135 mmol/L 135-145 Serum or plasma potassium measurement (moles/volume) 3.8 mmol/L 3.6-5.0 Serum or plasma chloride measurement (moles/volume) 99 mmol/L 98-107 Carbon dioxide 20 mmol/L 21-32 Serum or plasma anion gap determination (moles/volume) 16 mmol/L 5-14 Serum or plasma urea nitrogen measurement (mass/volume) 13 mg/dL 7-18 Serum or plasma creatinine measurement (mass/volume) 0.97 mg/dL 0.60-1.30 Serum or plasma urea nitrogen/creatinine mass ratio 13 NRG Serum or plasma creatinine measurement with calculation of estimated glomerular filtration rate > NRG Serum or plasma glucose measurement (mass/volume) 467 mg/dL 70-105 Serum or plasma calcium measurement (mass/volume) 9.9 mg/dL 8.5-10.1 Serum or plasma total bilirubin measurement (mass/volume) 0.6 mg/dL 0.1-1.0 Serum or plasma alkaline phosphatase measurement (enzymatic activity/volume) 70 U/L 40-136 Serum or plasma aspartate aminotransferase measurement (enzymatic activity/ volume) 14 U/L 5-34 Serum or plasma alanine aminotransferase measurement (enzymatic activity/volume ) 33 U/L 0-55 Serum or plasma protein measurement (mass/volume) 7.9 g/dL 6.4-8.2 Serum or plasma albumin measurement (mass/volume) 4.7 g/dL 3.2-4.5 Magnesium - 10/19/17 14:25 Magnesium 1.8 mg/dL 1.8-2.4 Serum or plasma troponin i.cardiac measurement (mass/volume) - 10/19/17 14:25 Serum or plasma troponin i.cardiac measurement (mass/volume) < ng/ mL <0.30 Myoglobin, serum - 10/19/17 14:25 Myoglobin, serum 18.3 ng/mL 10.0-92.0 Complete urinalysis with reflex to culture - 10/19/17 14:55 Urine color determination YELLOW NRG Urine clarity determination CLEAR NRG Urine pH measurement by test strip 5 5-9 Specific gravity of urine by test strip 1.020 1.016- 1.022 Urine protein assay by test strip, semi-quantitative 2+ NEGATIVE Urine glucose detection by automated test strip 4+ NEGATIVE Erythrocytes detection in urine sediment by light microscopy NEGATIVE NEGATIVE Urine ketones detection by automated test strip NEGATIVE NEGATIVE Urine nitrite detection by test strip NEGATIVE NEGATIVE Urine total bilirubin detection by test strip NEGATIVE NEGATIVE Urine urobilinogen measurement by automated test strip (mass/volume) NORMAL NORMAL Urine leukocyte esterase detection by dipstick NEGATIVE NEGATIVE Automated urine sediment erythrocyte count by microscopy (number/high power field) NONE NRG Automated urine sediment leukocyte count by microscopy (number/high power field ) NONE NRG Bacteria detection in urine sediment by light microscopy NEGATIVE NRG Squamous epithelial cells detection in urine sediment by light microscopy RARE NRG Crystals detection in urine sediment by light microscopy NONE NRG Casts detection in urine sediment by light microscopy NONE NRG Mucus detection in urine sediment by light microscopy NEGATIVE NRG Complete urinalysis with reflex to culture NO NRG Urine drug screening test - 10/19/17 14:55 Urine phencyclidine detection by screening method NEGATIVE NEGATIVE Urine benzodiazepines detection by screening method NEGATIVE NEGATIVE Urine cocaine detection NEGATIVE NEGATIVE Urine amphetamines detection by screening method NEGATIVE NEGATIVE Urine methamphetamine detection by screening method NEGATIVE NEGATIVE Urine cannabinoids detection by screening method NEGATIVE NEGATIVE Urine opiates detection by screening method NEGATIVE NEGATIVE Urine barbiturates detection NEGATIVE NEGATIVE Screening urine tricyclic antidepressants detection NEGATIVE NEGATIVE Urine methadone detection by screening method NEGATIVE NEGATIVE Urine oxycodone detection NEGATIVE NEGATIVE Urine propoxyphene detection NEGATIVE NEGATIVE Serum or plasma troponin i.cardiac measurement (mass/volume) - 10/19/17 16:37 Serum or plasma troponin i.cardiac measurement (mass/volume) < ng/ mL <0.30 Encounters ACCT No. Visit Date/Time Discharge Status Pt. Type Provider Facility Loc./Unit Complaint [id number] 06/29/2014 15:28:00 06/29/2014 23:59:59 CLS Outpatient STEWART EDWARDO [id number] 06/24/2014 11:41:00 ACT Document Registration [id number] 12/11/2017 16:30:00 12/11/2017 23:59:59 CLS Outpatient STEPHANE AMYAA APRN [facility] [id number] 11/06/2017 07:50:00 11/06/2017 23:59:59 CLS Outpatient Shira CARIAS MD [facility] CARD ANTERIOR CHEST WALL PAIN [id number] 10/19/2017 14:03:00 10/19/2017 17:37:00 DIS Emergency SHIRIN MATHEWS MD [facility] ER CHEST PAIN,FACIAL NUMBNESS [id number] 06/24/2014 11:40:00 06/24/2014 13:02:00 DIS Emergency FERNANDEZ ENRIQUE APRN [facility] ER ELEVATED BP
[2018-01-14] MEDS: NS IV 1000 ML 1,000 ML IV SCH ×2 (14:10→22:05)
[2018-01-14 15:38] VITALS: BP 153/90
[2018-01-14] MEDS: inSUlin ASPART (NovoLOG) 1 UNIT/0.01 ML (CHARGE PER UNIT) SC SCH ×2 (16:57→21:34)
[2018-01-14] MEDS ORDERED: ACETAMINOPHEN 325 MG TABLET PO NR (20:00)
[2018-01-14 20:19] VITALS: BP 162/93
[2018-01-14] MEDS: amLODIPine 5 MG (NORVASC) TAB PO SCH (20:43)
[2018-01-15] VITALS (9 sets, daily range): BP systolic 137–177; BP diastolic 76–97
[2018-01-15] MEDS: inSUlin ASPART (NovoLOG) 1 UNIT/0.01 ML (CHARGE PER UNIT) SC SCH ×2 (05:25→14:04)
[2018-01-15] MEDS: NS IV 1000 ML 1,000 ML IV SCH (06:07)
[2018-01-15 06:26] LABS: CHOLESTEROL 217 MG/DL (< 200); HDL CHOLESTEROL 26 MG/DL (40-60); TRIGLYCERIDES 724 MG/DL (<150); VLDL CHOLESTEROL 145 MG/DL (5-40)
[2018-01-15] MEDS ORDERED: NS IV 1000 ML 0 ML ONE (06:47)
[2018-01-15] MEDS ORDERED: LIDOCAINE 1% INJ 20 ML 20 ML VIAL ONE (06:47)
[2018-01-15] MEDS ORDERED: HEParin (CATH LAB) 2,000 ML IV ONE (06:47)
[2018-01-15] MEDS ORDERED: fentaNYL INJECTION 100 MCG/2 ML AMP ONE (07:28)
[2018-01-15] MEDS ORDERED: HEParin 1000 UNIT/ML (10ML VIAL) FOR BOLUS ONE (07:28)
[2018-01-15] MEDS ORDERED: NITRO DRIP 25000 MCG/D5W 250 ML IV ONE (07:28)
[2018-01-15] MEDS ORDERED: MIDAZOLAM 5 MG/5 ML (VERSED) VIAL ONE (07:28)
[2018-01-15] MEDS ORDERED: VERAPAMIL 5 MG/2 ML (CALAN) VIAL IV ONE (07:28)
--- NOTE | 2018-01-15 08:07 | Cardiology Progress Note ---
Cardiology SOAP Progress Note Subjective: No further chest pain. Objective: I&O/Vital Signs 01/15/18 01/15/18 01/15/18 01/15/18 00:01 01:00 04:19 07:00 Temp 97.3 97.4 Pulse 72 67 69 61 Resp 19 20 B/P (MAP) 157/78 (104) 137/76 (96) Pulse Ox 95 96 O2 Delivery Room Air Room Air 01/15/18 00:00 Intake Total 3420 ml Balance 3420 ml Weight (Pounds): 240 Weight (Ounces): 0.0 Weight (Calculated Kilograms): 108.950225 Constitutional: appears stated age; No apparent distress; well-developed, well- nourished Respiratory: No accessory muscle use, No respiratory distress, No chest tender , No chest expansion is symmetric; chest is bilaterally symmetric; No lungs clear to percussion; lungs clear to auscultation; No crackles, No rhonchi, No rales, No stridor, No wheezing, No pleural rub, No other Cardiovascular: regular rate-rhythm; No irregularly irregular, No extra beats, No parasternal heave is noted, No JVD, No edema, No bradycardia, No tachycardia , No point of maximal impulse, No cardiac thrills are palpable; S1 and S2; No gallop/S3, No gallop/S4, No diastolic murmur, No systolic murmur, No friction rub, No click, No other Gastrointestional: No tender, No soft, No round, No distended, No pulsatile mass, No organomegaly, No guarding, No rebound, No tenderness, No hernia, No mass, No audible bowel sounds, No abnormal bowel sounds, No abdominal bruits, No spleenomegaly, No other Extremities: No normal range of motion, No non-tender, No normal inspection, No pedal edema, No calf tenderness, No normal capillary refill, No pelvis stable , No calf tenderness, No inflammation, No pedal edema, No slow capillary refill , No swelling, No other, No abrasion, No clubbing, No cyanosis, No ecchymosis, No laceration, No no lower extremity edema bilateral, No significant edema, No tenderness, No wound Neurologic/Psychiatric: no motor/sensory deficits, alert, normal mood/affect, oriented x 3, power is 5/5 both on sides Skin: No normal color, No warm/dry, No cyanosis, No cool, No diaphoresis, No damp, No ecchymosis, No jaundice, No mottled, No pallor, No rash, No tattoos/ piercings, No ulcerations, No rash on exposed areas, No ulcerations on exposed areas, No other Results/Procedures: Labs Laboratory Tests 01/14/18 10:55: White Blood Count 7.8, Red Blood Count 5.26, Hemoglobin 15.9, Hematocrit 42, Mean Corpuscular Volume 80, Mean Corpuscular Hemoglobin 30, Mean Corpuscular Hemoglobin Concent 38H, Red Cell Distribution Width 13.1, Platelet Count 254, Mean Platelet Volume 9.6, Neutrophils (%) (Auto) 55, Lymphocytes (%) (Auto) 33, Monocytes (%) (Auto) 8, Eosinophils (%) (Auto) 3, Basophils (%) (Auto) 1, Neutrophils # (Auto) 4.3, Lymphocytes # (Auto) 2.6, Monocytes # (Auto) 0.6, Eosinophils # (Auto) 0.2, Basophils # (Auto) 0.0, Prothrombin Time 12.0L, INR Comment 0.9, Activated Partial Thromboplast Time 27, Sodium Level 135, Potassium Level 4.0, Chloride Level 101, Carbon Dioxide Level 19L, Anion Gap 15H , Blood Urea Nitrogen 18, Creatinine 0.83, Estimat Glomerular Filtration Rate > 60, BUN/Creatinine Ratio 22, Glucose Level 296H, Calcium Level 9.9, Corrected Calcium 9.6, Magnesium Level 1.9, Total Bilirubin 0.5, Aspartate Amino Transf ( AST/SGOT) 23, Alanine Aminotransferase (ALT/SGPT) 50, Alkaline Phosphatase 86, Myoglobin 14.3, Troponin I < 0.30, Total Protein 8.1, Albumin 4.4, Amylase Level 35, Lipase 76 01/14/18 16:48: Glucometer 286H 01/14/18 20:55: Glucometer 253H 01/15/18 05:13: Triglycerides Level 724H, Cholesterol Level 217H, LDL Cholesterol Direct 78, VLDL Cholesterol 145H, HDL Cholesterol 26L 01/15/18 05:14: Glucometer 242H A/P: Assessment/Dx: Unstable angina, Severe hypertension refractory to medical therapy, Diabetes Plan: Unstable angina. Serial troponin negative. EKG negative. Coronary angiography today. Aortic dissection and pulmonary embolism has been ruled out with a negative CT angiography. Hypertension: patient is already on lisinopril and hydrochlorothiazide. Amlodipine started. Patient will require renal angiography which was performed with coronary angiography. Diabetes: Uncontrolled. Defer to Dr. Morales. Thank you for your consultation. Please call me if you have any questions. Julissa Tapia MD, FACP, FACC, FSCAI, FHRS, CCDS Interventional Cardiology Cardiac Electrophysiology Vascular Medicine and Endovascular Interventions Clinical Quality Measures AMI/AHF: ASA po Prior to arrival: Shira Manrique MD Jan 15, 2018 8:07 am
--- NOTE | 2018-01-15 08:43 | Cardiac Procedure Note-CS/ASA ---
Pre-Procedure Note Pre-Op Procedure Note H&P Reviewed The H&P was reviewed, patient examined and no changes noted. Date H&P Reviewed: Jan 15, 2018 Time H&P Reviewed: 07:30 Conscious Sedation Pre-Proced Time Reviewed: 07:30 ASA Class: 2 Airway Mallampati Classification: ([place] appropriate class) I. II. III, IV Lungs Heart ASA score ASA 1: a normal healthy patient ASA 2: a patient with a mild systemic disease (mid diabetes, controlled hypertension, obesity ASA 3: a patient with a severe systemic disease that limits activity (angina , COPD, prior Myocardial infarction) ASA 4: a patient with an incapacitating disease that is a constant threat to life (CHF, renal failure) ASA 5: a moribund patient not expected to survive 24 hrs. (ruptured aneurysm) ASA 6: a declared brain patient whose organs are being harvested. For emergent operations, add the letter E after the classification Grade 1 Sedation Plan: Analgesia, Amnesia, Plan communicated to team members, Discussed options with patient/fam, Discussed risks with patient/fam Note The patient is an appropriate candidate to undergo the planned procedure, sedation, and anesthesia. The patient immediately re-assessed prior to indication. Shira CARIAS MD Jan 15, 2018 8:43 am
--- NOTE | 2018-01-15 08:47 | Coronary Angiography Report ---
Coronary Angiography Report DATE OF PROCEDURE: 01/15/18 INDICATION: Unstable angina, severe hypertension refractory to medical therapy. PREOPERATIVE DIAGNOSIS: Unstable angina, severe hypertension refractory to medical therapy. POSTOPERATIVE DIAGNOSIS: Patent epicardial coronary arteries. Patent renal arteries. HISTORY: This is a 47-year-old gentleman who complained of recurrent chest pain. For recurrent chest pain myocardial perfusion imaging was performed which did not show any significant reversible defect. He presented again to the ER with prolonged episode of chest pain. Of note the patient has significant risk factors for CAD including diabetes and hypertension. Therefore , the patient was scheduled for coronary angiography. The patient has severe hypertension refractory to medical therapy. Systolic blood pressure in the ER was over 200 mmHg. Therefore renal angiography was also recommended. PROCEDURES PERFORMED: 1.Coronary angiography. 2.Left heart catheterization. 3. Aortic arch angiogram. 4. Abdominal aortogram. 5. Bilateral selective renal angiogram. COMPLICATIONS: None. SPECIMENS: None. ESTIMATED BLOOD LOSS: 10 mL ANESTHESIA: Conscious sedation ANTICOAGULATION: IV heparin CONTRAST: 93 mL. FLUOROSCOPY: 5.8 minutes. FLOUROSCOPY DOSE: 804 MGY. PROCEDURE DETAILS: The patient is a 47 male and was brought to the recyclable materials collector after informed consent was taken. All the risks and complications were explained in detail; this included the risk of bleeding, vascular damage, stroke , DC and even . The patient was draped and prepped in the usual sterile fashion. Access was gained in the right radial artery with a 6 Polish sheath. Coronary angiography and left heart catheterization was performed with the Startex catheter. Abdominal aortogram and renal angiography was performed with the Startex catheter. FINDINGS: 1.Left main: Patent. 2.LAD: Patent. 3.Left circumflex artery: Patent. 4.RCA: Patent. 5.Left heart catheterization: LV pressure 129/2 mmHg. LVEDP 8 mmHg. Aortic pressure 128/91 mmHg. Normal LV function with no wall motion abnormalities. No gradient across the aortic valve. 6. Aortic arch angiogram: No evidence of dissection or aneurysm. Patent proximal segments of the great arteries including brachycephalic artery, common carotid artery, left subclavian artery. 7. Abdominal aortogram: No evidence of aneurysm or dissection. No significant atherosclerotic disease is noted. 8. Bilateral selective renal angiogram: Patent renal arteries with no gradient across the ostia. CONCLUSIONS: 1. Patent epicardial coronary arteries. 2. Patent bilateral renal arteries. 3. Normal LV function with normal LVEDP. Julissa Tapia MD, FACP, FACC, [facility] Interventional Cardiology Shira TAPIA MD Jan 15, 2018 8:47 am
[2018-01-15] MEDS ORDERED: NS IV 1000 ML 1,000 ML IV SCH (08:49)
[2018-01-15] MEDS ORDERED: ASPIRIN 81 MG CHEW (CHILDREN'S ASA) PO SCH (09:00)
[2018-01-15] MEDS ORDERED: ATOR40TA70 PO (09:03)
[2018-01-15] MEDS ORDERED: METF500T5 PO (09:03)
[2018-01-15] MEDS: amLODIPine 5 MG (NORVASC) TAB PO SCH (09:55)
[2018-01-15] MEDS ORDERED: ASPI-999 PO (10:22)
--- NOTE | 2018-01-15 10:28 | Discharge Inst-Simple/Standard ---
Discharge Inst-Standard Discharge Medications New, Converted or Re-Newed RX: Transmitted to Pharmacy Patient Instructions/Follow Up Plan of Care/Instructions/FU: Please keep your appointments as scheduled and continue to take your medications as written. Activity as Tolerated: Yes Discharge Diet: Low Sodium Diet, ADA Diet, Cardiac Diet Return to The Hospital For: Chest pain, SOB, if you feel you are getting worse. Planned Outpatient Orders/Ref. Pneu Vac Indicated: Yes ANIBAL GILMORE MD Jan 15, 2018 10:28
--- NOTE | 2018-01-15 10:30 | Discharge Summary-Hospitalist ---
Diagnosis/Chief Complaint Date of Admission Jan 14, 2018 at 12:16 Date of Discharge Discharge Date: Jan 15, 2018 Admission Diagnosis Chest pain Discharge Diagnosis (1) Chest pain Status: Acute Assessment & Plan: Previous negative stress test CTA negative for dissection Dr Tapia consulted, appreciate recs Cardiac and renal cath clean Follow up with Dr Tapia as recommended (2) Non-insulin dependent type 2 diabetes mellitus Status: Chronic Assessment & Plan: On metformin as outpatient (though filled in October and reports still has pills left) Will increase Metformin to BID dosing to start tomorrow Strongly recommended outpatient follow up and called Hospital to hospice coordinator for [facility] and made appointment for next week (3) Hypertensive urgency Status: Resolved Assessment & Plan: BP mildly elevated today but improved from presentation Continue on Amlodipine Advised to follow up as above Discharge Summary Procedures/Consulations Dr Tapia- Cardiology Discharge Physical Exam Allergies: Coded Allergies: No Known Drug Allergies (Unverified , 06/24/14) Vitals & I&Os Vital Signs Date Time Temp Pulse Resp B/P (MAP) Pulse Ox O2 Delivery O2 Flow Rate FiO2 01/15/18 14:23 01/15/18 13:00 72 01/15/18 12:00 98.4 18 98 Room Air General Appearance: Alert, Oriented X3 Respiratory: Clear to Auscultation Cardiovascular: Regular Rate Hospital Course Pt wad admitted for chest pain and ACS rule out. He had had a previous negative stress test but given symptoms he was admitted for cardiac cath. Cath was done on 01/[address] Tapia. I discussed with him the importance of following up with primary care to manage his diabetes and hypertension which he agrees to do it. He had an otherwise uneventful hospital stay and was discharged home in stable condition. Labs (last 24 hrs) Microbiology 01/14/18 MRSA Screen - Final, Complete MRSA not isolated Patient resulted labs reviewed. Pending Labs Imaging: Reviewed Imaging Report Discussion & Recommendations Discharge Planning: >30 minutes discharge planning Discharge Home Medications: Active Scripts Active Aspirin 81 Mg Tab.chew 81 Mg PO DAILY@0900 Metformin HCl 500 Mg Tablet 500 Mg PO BID Atorvastatin Calcium 40 Mg Tablet 40 Mg PO HS Reported Amlodipine Besylate 5 Mg Tablet 5 Mg PO DAILY Advil (Ibuprofen) 200 Mg Tablet 400-600 Mg PO TID PRN Instructions to patient/family Please see electronic discharge instructions given to patient. Clinical Quality Measures AMI/AHF: ASA po Prior to arrival: No DVT/VTE Risk/Contraindication: Risk Factor Score Per Nursin RFS Level Per Nursing on Admit: 2=Moderate Problem Qualifiers (1) Chest pain: Chest pain type: unspecified Qualified Codes: R07.9 - Chest pain, unspecified ANIBAL GILMORE MD Jan 15, 2018 10:30
--- OUTSIDE RECORDS SUMMARY | 2018-01-23 11:11 | XMS REPORT ---
Author Author KYLER HERRING Organization [facility] Address [address] [place] [address] Care Team Providers Care Headlight Adjuster Name Role Phone KYLER HERRING Unavailable PROBLEMS Type Condition ICD9-CM Code AAK36-MH Code Onset Dates Condition Status SNOMED Code Problem Cervicalgia 723.1 Active 74084575 Problem Other abnormal glucose 790.29 Active 926407726 ALLERGIES Substance Reaction Event Type Date Status penicillin hives Non Drug Allergy October, Active ENCOUNTERS Encounter Location Date Diagnosis [facility] [id number] [place] [phone] Dec, Poison varsha dermatitis L23.7 [facility] [id number] [place] [phone] October, Allergic contact dermatitis due to plants, except food L23.7 and Contact dermatitis due to plants, except food, unspecified contact dermatitis type L25.5 [facility] [id number] [place] [phone] Sep, [facility] [place] [id number] [place] [phone] Sep, [facility] [place] [id number] [place] [phone] Jul, [facility] [place] [address] [phone] Jul, [facility] [place] [id number] [place] [phone] Jun, [facility] [place] [address] [phone] Jun, IMMUNIZATIONS Vaccine Route Administration Date Status DEXAMETHASONE 4MG/ML (PER 1 MG) IM Intramuscular October 13, 2017 Administered DEPO MEDROL 40 MG/ML IM Intramuscular October 13, 2017 Administered SOCIAL HISTORY Never Assessed REASON FOR VISIT poison varsha Pt c/o poison varsha rash [facility] [place] PLAN OF CARE Activity Details Follow Up prn Reason: VITAL SIGNS Height 69 in 2017-10-13 Weight 230.6 lbs 2017-10-13 Temperature 97.8 degrees Fahrenheit 2017-10-13 Heart Rate 90 bpm 2017-10-13 Respiratory Rate 20 2017-10-13 BMI 34.05 kg/m2 2017-10-13 Blood pressure systolic 156 mmHg 2017-10-13 Blood pressure diastolic 102 mmHg 2017-10-13 MEDICATIONS Medication Instructions Dosage Frequency Start Date End Date Duration Status Lisinopril-Hydrochlorothiazide 20-12.5 mg take 1 tablet by oral route once daily Jun, Not-Taking RESULTS No Results PROCEDURES Procedure Date Ordered Result Body Site DEPO MEDROL 40 MG/ML October 13, 2017 THER/PROPH/DIAG INJ, SC/IM October 13, 2017 DEXAMETHASONE 4MG/ML (PER 1 MG) October 13, 2017 INSTRUCTIONS MEDICATIONS ADMINISTERED No Known Medications
--- OUTSIDE RECORDS SUMMARY | 2018-01-23 11:11 | XMS REPORT | Continuity of Care Document ---
Author Author [facility] [place] [facility] Address Unknown Phone Unavailable Allergies Active Description Code Type Severity Reaction Onset Reported/Identified Relationship to Patient Clinical Status Yes No Known Drug Allergies [id number] Drug Allergy Unknown N/A 06/24/2014 Medications There [...] i.cardiac measurement (mass/volume) < ng/ mL <0.30 Methicillin resistant Staphylococcus aureus (MRSA) screening culture - 05:40 Methicillin resistant Staphylococcus aureus (MRSA) screening culture NEG NRG Complete blood count (CBC) with automated white blood cell (WBC) differential - 01/14/18 10:55 Blood leukocytes automated count (number/volume) 7.8 10*3/uL 4.3-11.0 Blood erythrocytes automated count (number/volume) 5.26 10*6/uL 4.35-5.85 Venous blood hemoglobin measurement (mass/volume) 15.9 g/dL 13.3-17.7 Blood hematocrit (volume fraction) 42 % 40-54 Automated erythrocyte mean corpuscular volume 80 [foz_us] 80-99 Automated erythrocyte mean corpuscular hemoglobin (mass per erythrocyte) 30 pg 25-34 Automated erythrocyte mean corpuscular hemoglobin concentration measurement ( mass/volume) 38 g/dL 32-36 Automated erythrocyte distribution width ratio 13.1 % 10.0-14.5 Automated blood platelet count (count/volume) 254 10*3/uL 130-400 Automated blood platelet mean volume measurement 9.6 [foz_us] 7.4-10.4 Automated blood neutrophils/100 leukocytes 55 % 42-75 Automated blood lymphocytes/100 leukocytes 33 % 12-44 Blood monocytes/100 leukocytes 8 % 0-12 Automated blood eosinophils/100 leukocytes 3 % 0-10 Automated blood basophils/100 leukocytes 1 % 0-10 Blood neutrophils automated count (number/volume) 4.3 10*3 1.8-7.8 Blood lymphocytes automated count (number/volume) 2.6 10*3 1.0-4.0 Blood monocytes automated count (number/volume) 0.6 10*3 0.0-1.0 Automated eosinophil count 0.2 10*3/uL 0.0-0.3 Automated blood basophil count (count/volume) 0.0 10*3/uL 0.0-0.1 PT panel in platelet poor plasma by coagulation assay - 01/14/18 10:55 Prothrombin time (PT) in platelet poor plasma by coagulation assay 12.0 s 12.2-14.7 INR in platelet poor plasma or blood by coagulation assay 0.9 0.8-1.4 Activated partial thromboplastin time (aPTT) in platelet poor plasma bycoagulation assay - 01/14/18 10:55 Activated partial thromboplastin time (aPTT) in platelet poor plasma bycoagulation assay 27 s 24-35 Comprehensive metabolic panel - 01/14/18 10:55 Serum or plasma sodium measurement (moles/volume) 135 mmol/L 135-145 Serum or plasma potassium measurement (moles/volume) 4.0 mmol/L 3.6-5.0 Serum or plasma chloride measurement (moles/volume) 101 mmol/L 98-107 Carbon dioxide 19 mmol/L 21-32 Serum or plasma anion gap determination (moles/volume) 15 mmol/L 5-14 Serum or plasma urea nitrogen measurement (mass/volume) 18 mg/dL 7-18 Serum or plasma creatinine measurement (mass/volume) 0.83 mg/dL 0.60-1.30 Serum or plasma urea nitrogen/creatinine mass ratio 22 NRG Serum or plasma creatinine measurement with calculation of estimated glomerular filtration rate > NRG Serum or plasma glucose measurement (mass/volume) 296 mg/dL 70-105 Serum or plasma calcium measurement (mass/volume) 9.9 mg/dL 8.5-10.1 Serum or plasma total bilirubin measurement (mass/volume) 0.5 mg/dL 0.1-1.0 Serum or plasma alkaline phosphatase measurement (enzymatic activity/volume) 86 U/L 40-136 Serum or plasma aspartate aminotransferase measurement (enzymatic activity/ volume) 23 U/L 5-34 Serum or plasma alanine aminotransferase measurement (enzymatic activity/volume ) 50 U/L 0-55 Serum or plasma protein measurement (mass/volume) 8.1 g/dL 6.4-8.2 Serum or plasma albumin measurement (mass/volume) 4.4 g/dL 3.2-4.5 CALCIUM CORRECTED 9.6 mg/dL 8.5-10.1 Magnesium - 01/14/18 10:55 Magnesium 1.9 mg/dL 1.8-2.4 Serum or plasma troponin i.cardiac measurement (mass/volume) - 01/14/18 10:55 Serum or plasma troponin i.cardiac measurement (mass/volume) < ng/ mL <0.30 Myoglobin, serum - 01/14/18 10:55 Myoglobin, serum 14.3 ng/mL 10.0-92.0 Serum or plasma amylase measurement (enzymatic activity/volume) - 01/14/18 10: 55 Serum or plasma amylase measurement (enzymatic activity/volume) 35 U /L 25-125 Lipase - 01/14/18 10:55 Lipase 76 U/L 8-78 Capillary blood glucose measurement by glucometer (mass/volume) - 01/14/18 16: 48 Capillary blood glucose measurement by glucometer (mass/volume) 286 mg/dL 70-110 Capillary blood glucose measurement by glucometer (mass/volume) - 01/14/18 20: 55 Capillary blood glucose measurement by glucometer (mass/volume) 253 mg/dL 70-110 Lipid 1996 panel - 01/15/18 05:13 Serum or plasma triglyceride measurement (mass/volume) 724 mg/dL <150 Serum or plasma cholesterol measurement (mass/volume) 217 mg/dL < 200 Serum or plasma cholesterol in HDL measurement (mass/volume) 26 mg/ dL 40-60 Cholesterol in LDL [mass/volume] in serum or plasma by direct assay 78 mg/dL 1-129 Serum or plasma cholesterol in VLDL measurement (mass/volume) 145 mg /dL 5-40 Capillary blood glucose measurement by glucometer (mass/volume) - 01/15/18 05: 14 Capillary blood glucose measurement by glucometer (mass/volume) 242 mg/dL 70-110 Encounters ACCT No. Visit Date/Time Discharge Status Pt. Type Provider Facility Loc./Unit Complaint [id number] 06/29/2014 15:28:00 06/29/2014 23:59:59 CLS Outpatient EDWARDO STEWART DO [facility] 06/24/2014 11:41:00 ACT Document Registration [id number] 12/11/2017 16:30:00 12/11/2017 23:59:59 CLS Outpatient STEPHANE AMAYA APRN [facility] [id number] 11/06/2017 07:50:00 11/06/2017 23:59:59 CLS Outpatient Shira CARIAS MD [facility] CARD ANTERIOR CHEST WALL PAIN [id number] 10/19/2017 14:03:00 10/19/2017 17:37:00 DIS Emergency SHIRIN MATHEWS MD [facility] ER CHEST PAIN,FACIAL NUMBNESS [id number] 06/24/2014 11:40:00 06/24/2014 13:02:00 DIS Emergency FERNANDEZ ENRIQUE APRN [facility] ER ELEVATED BP [id number] 01/15/2018 08:50:00 Document Registration
== END 2018-01-15 14:23 | disposition home or self-care (01) ==
LOC: EDUNIT# 10:23 → ER 10:24 → 4TH 12:16 → UNDOADMOB 12:16 → CATH 13:10 → 4TH 13:10 → UNDODISOB 01-15 14:23 → CATH 01-15 14:23
PROVIDERS: ATTEND Family Medicine
DX: R07.9 Chest pain, unspecified (principal); I16.0 Hypertensive urgency; I10 Essential (primary) hypertension; E11.9 Type 2 diabetes mellitus without complications; M54.2 Cervicalgia; G89.29 Other chronic pain; Z79.84 Long term (current) use of oral hypoglycemic drugs
CPT/HCPCS: 36221; 36252; 36415; 71045; 71275; 75625; 80053; 80061; 82150; 82962; 83690; 83735; 83874; 84484; 85025; 85610; 85730; 87081; 93005; 93041; 93458; 96374

== ENCOUNTER 2018-10-16 14:13 | Emergency (ER) | payer SELFPAY ==
[~2018-10-16] VITALS: Ht 175.3 cm; Wt 109.8 kg
[~2018-10-16 14:13] MED LIST changes: +AMLO5TAB9 PO; +ASPI-999 PO; +ATOR40TA70 PO; +IBUP-30 PO; +METF-397 PO; -METF500T5 PO
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
[2018-10-16] MEDS ORDERED: MELO15TA39 PO (15:34)
--- OUTSIDE RECORDS SUMMARY | 2018-10-16 15:38 | XMS REPORT ---
Author Author Migration, Doctor Organization [facility] Address Unknown Phone Unavailable Care Team Providers Care Transcription Name Role Phone Migration, Doctor Unavailable Unavailable PROBLEMS Type Condition ICD9-CM Code [id number] Code Onset Dates Condition Status SNOMED Code Problem Cervical disc disease M50.90 Active 040687108 Problem Essential hypertension I10 Active 98563293 Problem Other abnormal glucose 790.29 Active 425708390 Problem Cervicalgia 723.1 Active 56391284 Problem Type 2 diabetes mellitus without complication, without long-term current use of insulin E11.9 Active 803937434 ALLERGIES No Information ENCOUNTERS Encounter Location Date Diagnosis [place] [address] [address] Feb, [place] [address] [address] Jan, [facility] [address] [place] [address] Jan, Insect bite, initial encounter W57.XXXA and Cellulitis of left upper extremity L03.[address] [address] Jan, [place] [address] [address] Jan, Cervical disc disease M50.90 ; Type 2 diabetes mellitus without complication, without long-term current use of insulin E11.9 and Essential hypertension I10 [facility] WALK IN [address] [address] Dec, Poison varsha dermatitis L23.7 [facility] WALK IN [address] [address] October, Allergic contact dermatitis due to plants, except food L23.7 and Contact dermatitis due to plants, except food, unspecified contact dermatitis type L25.5 [facility] [address] [place] [id number] [address] Sep, [facility] [address] [place] [address] Sep, [facility] [address], [place] [address] Jul, [facility] [address], [place] [address] Jul, [facility] [address] [place] [id number], [place] [address] Jun, [facility] [address] [place] [id number], [place] [address] Jun, IMMUNIZATIONS No Known Immunizations SOCIAL HISTORY Never Assessed REASON FOR VISIT [facility] PLAN OF CARE VITAL SIGNS MEDICATIONS Medication Instructions Dosage Frequency Start Date End Date Duration Status Lisinopril-Hydrochlorothiazide 20-12.5 mg take 1 tablet by oral route once daily Jun, Active RESULTS No Results PROCEDURES No Known procedures INSTRUCTIONS MEDICATIONS ADMINISTERED No Known Medications MEDICAL (GENERAL) HISTORY Type Description Date Surgical History Gallbladder Surgical History Colonscopy x3 Surgical History sigmoid colectomy Hospitalization History [facility] x1 night 2018 Hospitalization History Andi dumont 1992-
--- OUTSIDE RECORDS SUMMARY | 2018-10-16 15:38 | XMS REPORT ---
Author Author THEODORE DOVE Organization [facility] Address [address] [place] [address] Care Team Providers Care Flatwork Presser Name Role Phone THEODORE DOVE Unavailable PROBLEMS Type Condition ICD9-CM Code [id number] Code Onset Dates Condition Status SNOMED Code Problem Essential hypertension I10 Active 12445739 Problem Cervical disc disease M50.90 Active 567931824 Problem Other abnormal glucose 790.29 Active 598367319 Problem Type 2 diabetes mellitus without complication, without long-term current use of insulin E11.9 Active 587422917 Problem Cervicalgia 723.1 Active 12923240 ALLERGIES No Information ENCOUNTERS Encounter Location Date Diagnosis [place] [address] [address] Feb, [facility] [address] [address] Jan, [facility] [address] [place] [id number] [place] [address] Jan, Insect bite, initial encounter W57.XXXA and Cellulitis of left upper extremity L03.114 [place] [address] [address] Jan, [facility] [address] [address] Jan, Cervical disc disease M50.90 ; Type 2 diabetes mellitus without complication, without long-term current use of insulin E11.9 and Essential hypertension I10 [facility] [address] [address] Dec, Poison varsha dermatitis L23.7 [facility] [address] [address] October, Allergic contact dermatitis due to plants, except food L23.7 and Contact dermatitis due to plants, except food, unspecified contact dermatitis type L25.5 [place] [address], [place] [address] Sep, [facility] [address], [place] [address] Sep, [place] [address] [place] [address] Jul, [place] [address], [place] [address] Jul, [place] [address] [address] Jun, [place] [address] [address] Jun, IMMUNIZATIONS No Known Immunizations SOCIAL HISTORY Never Assessed REASON FOR VISIT Medication question PLAN OF CARE VITAL SIGNS MEDICATIONS Unknown Medications RESULTS No Results PROCEDURES No Known procedures INSTRUCTIONS MEDICATIONS ADMINISTERED No Known Medications MEDICAL (GENERAL) HISTORY Type Description Date Surgical History Gallbladder Surgical History Colonscopy x3 Surgical History sigmoid colectomy Hospitalization History [facility] x1 night 2018 Hospitalization History Andi rodriguezbenji 1992-
--- OUTSIDE RECORDS SUMMARY | 2018-10-16 15:39 | XMS REPORT ---
Author Author THEODORE DOVE Organization [facility] Address [address] [place] [address] Care Team Providers Care Search Engine Optimization Specialist Name Role Phone THEODORE DOVE Unavailable PROBLEMS Type Condition ICD9-CM Code [id number] Code Onset Dates Condition Status SNOMED Code Problem Essential hypertension I10 Active 05070234 Problem Cervical disc disease M50.90 Active 344936650 Problem Other abnormal glucose 790.29 Active 498045361 Problem Type 2 diabetes mellitus without complication, without long-term current use of insulin E11.9 Active 942084187 Problem Cervicalgia 723.1 Active 05640329 ALLERGIES Substance Reaction Event Type Date Status penicillin hives Non Drug Allergy Jan, Active ENCOUNTERS Encounter Location Date Diagnosis [facility] [address] [place] [id number] [place] [address] Feb, [place] [address] [address] Jan, [facility] [address] [place] [id number] [place] [address] Jan, Insect bite, initial encounter W57.XXXA and Cellulitis of left upper extremity L03.114 [facility] [address] [place] [id number] [place] [address] Jan, [facility] [address] [place] [id number] [place] [address] Jan, Cervical disc disease M50.90 ; Type 2 diabetes mellitus without complication, without long-term current use of insulin E11.9 and Essential hypertension I10 [facility] [address] [place] [id number] [place] [address] Dec, Poison varsha dermatitis L23.7 [facility] [address] [facility] [id number] [address] October, Allergic contact dermatitis due to plants, except food L23.7 and Contact dermatitis due to plants, except food, unspecified contact dermatitis type L25.5 [facility] [address], [place] [address] Sep, [facility] [address], [place] [address] Sep, [facility] [address] [place] [id number], [place] [address] Jul, [facility] [address], [place] [address] Jul, [facility] [address] [place] [id number], [place] [address] Jun, [facility] [address], [place] [address] Jun, IMMUNIZATIONS No Known Immunizations SOCIAL HISTORY Never Assessed REASON FOR VISIT [facility] follow up, PT reports 2 weeks ago he went into the ER due to pain in both of his arms. PT was adimted over night where they did an angio scan. PT notes they want him to follow up with an ortho. Juan KEITH , PT discusses that they gave him Alprazolam in the hospital and it helped. PT was informed to ask about it during his visit to help lower his BP. Juan KEITH PLAN OF CARE Activity Details Follow Up 3 Months Reason: VITAL SIGNS Height 69 in 2018-01-26 Weight 223.6 lbs 2018-01-26 Temperature 97.3 degrees Fahrenheit 2018-01-26 Heart Rate 76 bpm 2018-01-26 Respiratory Rate 20 2018-01-26 Oximetry 97 % 2018-01-26 BMI 33.02 kg/m2 2018-01-26 Blood pressure systolic 138 mmHg 2018-01-26 Blood pressure diastolic 88 mmHg 2018-01-26 MEDICATIONS Medication Instructions Dosage Frequency Start Date End Date Duration Status Naprosyn 500 mg Orally 2 times a day 1 tablet with food or milk as needed 12h 20 Jan, 2018 Active GlipiZIDE 10 mg Orally Once a day 1 tablet 24h 20 Jan, 2018 30 day(s) Active Metformin HCl 1000 MG Orally 2 times a day, pc 1 tab Active RESULTS Name Result Date Reference Range A1C (IN HOUSE) 2018-01-26 A1C IN HOUSE 10.6 4.3 - 5.6 % Previous A1c n/a Lot [id number] Exp date 08/2019 PROCEDURES Procedure Date Ordered Result Body Site GLYCATED HEMOGLOBIN TEST Jan 26, 2018 INSTRUCTIONS MEDICATIONS ADMINISTERED No Known Medications MEDICAL (GENERAL) HISTORY Type Description Date Surgical History Gallbladder Surgical History Colonscopy x3 Surgical History sigmoid colectomy Hospitalization History [facility] x1 night 2018 Hospitalization History [facility]-
--- OUTSIDE RECORDS SUMMARY | 2018-10-16 15:39 | XMS REPORT ---
Author Author STEPHANE AMAYA Organization [facility] Address [address] [place] [address] Care Team Providers Care Tire Mold Tester Name Role Phone STEPHANE AMAYA Unavailable PROBLEMS Type Condition ICD9-CM Code [id number] Code Onset Dates Condition Status SNOMED Code Problem Essential hypertension I10 Active 84988851 Problem Cervical disc disease M50.90 Active 173583503 Problem Other abnormal glucose 790.29 Active 371200628 Problem Type 2 diabetes mellitus without complication, without long-term current use of insulin E11.9 Active 051449477 Problem Cervicalgia 723.1 Active 89356187 ALLERGIES No Information ENCOUNTERS Encounter Location Date Diagnosis [facility] [address] [address] Feb, [facility] [address] [address] Jan, [facility] [address] [address] Jan, Insect bite, initial encounter W57.XXXA and Cellulitis of left upper extremity L03.114 [facility] [address] [place] [id number] [place] [address] Jan, [facility] [address] [address] Jan, Cervical disc disease M50.90 ; Type 2 diabetes mellitus without complication, without long-term current use of insulin E11.9 and Essential hypertension I10 [facility] [address] [address] Dec, Poison varsha dermatitis L23.7 [facility] [address] [place] [address] October, Allergic contact dermatitis due to plants, except food L23.7 and Contact dermatitis due to plants, except food, unspecified contact dermatitis type L25.5 [facility] [address] [place] [id number], [place] [address] Sep, [facility] [address], [place] [address] Sep, [facility] [address], [place] [address] Jul, [facility] [address], [place] [address] Jul, [facility] [address] [address] Jun, [place] [address] [place] [id number] [address] Jun, IMMUNIZATIONS No Known Immunizations SOCIAL HISTORY Never Assessed REASON FOR VISIT glucometer PLAN OF CARE VITAL SIGNS MEDICATIONS Medication Instructions Dosage Frequency Start Date End Date Duration Status Glucocard Expression Test - In Vitro 2 times a day as directed 12h Jan, 30 days Active Glucocard Expression Monitor w/Device as directed Jan, Active RESULTS No Results PROCEDURES No Known procedures INSTRUCTIONS MEDICATIONS ADMINISTERED No Known Medications MEDICAL (GENERAL) HISTORY Type Description Date Surgical History Gallbladder Surgical History Colonscopy x3 Surgical History sigmoid colectomy Hospitalization History [facility] x1 night 2017 Hospitalization History Andi dumont 1992-
--- OUTSIDE RECORDS SUMMARY | 2018-10-16 15:39 | XMS REPORT | Continuity of Care Document ---
Author Organization Unknown Address Unknown Allergies Active Description Code Type Severity Reaction Onset Reported/Identified Relationship to Patient Clinical Status Yes No Known Drug Allergies [id number] Drug Allergy Unknown N/A 06/24/2014 Medications There [...] MD Ot R07.89 OTHER CHEST PAIN 11/25/2017 ARETHA TATE, Shira PIERRE Ot E11.9 TYPE 2 DIABETES MELLITUS WITHOUT COMPLIC 11/25/2017 Shira CARIAS MD Ot E66.01 MORBID (SEVERE) OBESITY DUE TO EXCESS CA 11/25/2017 Shira CARIAS MD Ot E78.00 PURE HYPERCHOLESTEROLEMIA, UNSPECIFIED 11/25/2017 Shira CARIAS MD Ot I10 ESSENTIAL (PRIMARY) HYPERTENSION 11/25/2017 Shira CARIAS MD Ot R07.89 OTHER CHEST PAIN 01/15/2018 Ot E11.9 TYPE 2 DIABETES MELLITUS WITHOUT COMPLIC 01/15/2018 Ot G89.29 OTHER CHRONIC PAIN 01/15/2018 Ot I10 ESSENTIAL ( PRIMARY) HYPERTENSION 01/15/2018 Ot I16.0 HYPERTENSIVE URGENCY 01/15/2018 Ot M54.2 CERVICALGIA 01/15/2018 Ot R07.9 CHEST PAIN, UNSPECIFIED 01/15/2018 Ot Z79.84 JAIL ( CURRENT) USE OF ORAL HYPOGLYC 01/29/2018 Ot E11.9 TYPE 2 DIABETES MELLITUS WITHOUT COMPLIC 01/29/2018 Ot G89.29 OTHER CHRONIC PAIN 01/29/2018 Ot I10 ESSENTIAL ( PRIMARY) HYPERTENSION 01/29/2018 Ot I16.0 HYPERTENSIVE URGENCY 01/29/2018 Ot M54.2 CERVICALGIA 01/29/2018 Ot R07.9 CHEST PAIN, UNSPECIFIED 01/29/2018 Ot Z79.84 JAIL ( CURRENT) USE OF ORAL HYPOGLYC Procedures There is no data. Results Test [...] Status Pt. Type Provider Facility Loc./Unit Complaint [id number] 06/29/2014 15:28:00 06/29/2014 23:59:59 CLS Outpatient EDWARDO STEWART DO [facility] 06/24/2014 11:41:00 ACT Document Registration [id number] 12/11/2017 16:30:00 12/11/2017 23:59:59 CLS Outpatient STEPHANE AMAYA APRN [facility] [id number] 11/06/2017 07:50:00 11/06/2017 23:59:59 CLS Outpatient Shira CARIAS MD [facility] CARD ANTERIOR CHEST WALL PAIN [id number] 10/19/2017 14:03:00 10/19/2017 17:37:00 DIS Emergency SHIRIN MATHEWS MD [facility] ER CHEST PAIN,FACIAL NUMBNESS [id number] 06/24/2014 11:40:00 06/24/2014 13:02:00 DIS Emergency FERNANDEZ ENRIQUE APRN [facility] ER ELEVATED BP [id number] 01/15/2018 08:50:00 Document Registration
--- OUTSIDE RECORDS SUMMARY | 2018-10-16 15:39 | XMS REPORT ---
Author Author MAICOL ELIZABETH Organization [facility] Address [address] [place] [address] Care Team Providers Care Applications Specialist Name Role Phone MAICOL ELIZABETH Unavailable PROBLEMS Type Condition ICD9-CM Code [id number] Code Onset Dates Condition Status SNOMED Code Problem Essential hypertension I10 Active 67996895 Problem Cervical disc disease M50.90 Active 299363364 Problem Other abnormal glucose 790.29 Active 392317849 Problem Type 2 diabetes mellitus without complication, without long-term current use of insulin E11.9 Active 644073604 Problem Cervicalgia 723.1 Active 70764419 ALLERGIES Substance Reaction Event Type Date Status penicillin hives Non Drug Allergy Dec, Active ENCOUNTERS Encounter Location Date Diagnosis [place] [id number] [address] Jan, [facility] [address] [address] Jan, Insect bite, initial encounter W57.XXXA and Cellulitis of left upper extremity L03.114 [place] [address] [address] Jan, [place] [address] [address] Jan, Cervical disc disease M50.90 ; Type 2 diabetes mellitus without complication, without long-term current use of insulin E11.9 and Essential hypertension I10 [facility] [address] [address] Dec, Poison varsha dermatitis L23.7 [facility] [address] [address] October, Allergic contact dermatitis due to plants, except food L23.7 and Contact dermatitis due to plants, except food, unspecified contact dermatitis type L25.5 [facility] [address] [address] Sep, [facility] [id number] [address] Sep, [facility] [address], [place] [address] Jul, [facility] [id number] [address] Jul, [place] [address] [place] [id number] [address] Jun, [place] [address] [place] [address] Jun, IMMUNIZATIONS Vaccine Route Administration Date Status DEXAMETHASONE 4MG/ML (PER 1 MG) IM Intramuscular December 11, 2017 Administered DEPO MEDROL 40 MG/ML IM Intramuscular December 11, 2017 Administered SOCIAL HISTORY Never Assessed REASON FOR VISIT poison varsha- had same thing on 10/13 also canceled est care appt JStrasserRN PLAN OF CARE Activity Details Follow Up prn Reason:if symptoms worsen or not improving VITAL SIGNS Height 69 in 2017-12-11 Weight 230.6 lbs 2017-12-11 Temperature 97.9 degrees Fahrenheit 2017-12-11 Heart Rate 76 bpm 2017-12-11 Respiratory Rate 20 2017-12-11 BMI 34.05 kg/m2 2017-12-11 Blood pressure systolic 150 mmHg 2017-12-11 Blood pressure diastolic 94 mmHg 2017-12-11 MEDICATIONS Medication Instructions Dosage Frequency Start Date End Date Duration Status Zyrtec Allergy 10 mg Orally Once a day 1 tablet 24h Dec, Dec, 07 days Active Betamethasone Dipropionate Aug 0.05 % Externally Once a day 1 application to affected area 24h Dec, Dec, 07 days Active Lisinopril-Hydrochlorothiazide 20-12.5 mg take 1 tablet by oral route once daily Jun, Not-Taking RESULTS No Results PROCEDURES Procedure Date Ordered Result Body Site DEPO MEDROL 40 MG/ML December 11, 2017 DEXAMETHASONE 4MG/ML (PER 1 MG) December 11, 2017 THER/PROPH/DIAG INJ, SC/IM December 11, 2017 INSTRUCTIONS MEDICATIONS ADMINISTERED No Known Medications MEDICAL (GENERAL) HISTORY Type Description Date Surgical History Gallbladder Surgical History Colonscopy x3 Surgical History sigmoid colectomy Hospitalization History [facility] x1 night 2018 Hospitalization History [facility]
--- OUTSIDE RECORDS SUMMARY | 2018-10-16 15:39 | XMS REPORT ---
Author Author STEPHANE AMAYA Organization [facility] Address [address] [place] [address] Care Team Providers Care Director Title Name Role Phone STEPHANE AMAYA Unavailable PROBLEMS Type Condition ICD9-CM Code [id number] Code Onset Dates Condition Status SNOMED Code Problem Essential hypertension I10 Active 70411013 Problem Cervical disc disease M50.90 Active 103756589 Problem Other abnormal glucose 790.29 Active 920854936 Problem Type 2 diabetes mellitus without complication, without long-term current use of insulin E11.9 Active 678048217 Problem Cervicalgia 723.1 Active 92291088 ALLERGIES No Information ENCOUNTERS Encounter Location Date Diagnosis [facility] [address] [address] Feb, [facility] [address] [address] Jan, [facility] [address] [address] Jan, Insect bite, initial encounter W57.XXXA and Cellulitis of left upper extremity L03.114 [facility] [address] [place] [id number] [place] [address] Jan, [facility] [address] [address] Jan, Cervical disc disease M50.90 ; Type 2 diabetes mellitus without complication, without long-term current use of insulin E11.9 and Essential hypertension I10 [facility] [address] [address] Dec, Poison varsha dermatitis L23.7 [facility] [address] [place] [address] October, Allergic contact dermatitis due to plants, except food L23.7 and Contact dermatitis due to plants, except food, unspecified contact dermatitis type L25.5 [facility] [address] [place] [id number] [address] Sep, [facility] [address] [address] Sep, [place] [address] [place] [address] Jul, [place] [address] [place] [address] Jul, [place] [address] [address] Jun, [place] [address] [address] Jun, IMMUNIZATIONS No Known Immunizations SOCIAL HISTORY Never Assessed REASON FOR VISIT teststrips PLAN OF CARE VITAL SIGNS MEDICATIONS Medication Instructions Dosage Frequency Start Date End Date Duration Status Glucocard Expression Test - In Vitro 2 times a day as directed 12Jan, 30 days Active RESULTS No Results PROCEDURES No Known procedures INSTRUCTIONS MEDICATIONS ADMINISTERED No Known Medications MEDICAL (GENERAL) HISTORY Type Description Date Surgical History Gallbladder Surgical History Colonscopy x3 Surgical History sigmoid colectomy Hospitalization History [facility] x1 night 2018 Hospitalization History [facility] 1992-
[2018-10-16 15:45] VITALS: BP 195/105
== END 2018-10-16 15:45 | disposition home or self-care (01) ==
LOC: EDUNIT# 14:13 → ER 14:14
DX: M23.91 Unspecified internal derangement of right knee (principal); I10 Essential (primary) hypertension; G43.909 Migraine, unspecified, not intractable, without status migrainosus; K21.9 Gastro-esophageal reflux disease without esophagitis; F41.9 Anxiety disorder, unspecified; F43.10 Post-traumatic stress disorder, unspecified; F31.9 Bipolar disorder, unspecified; Z79.82 Long term (current) use of aspirin; Z79.84 Long term (current) use of oral hypoglycemic drugs; Z82.49 Family history of ischemic heart disease and other diseases of the circulatory system
CPT/HCPCS: 73562

== ENCOUNTER → 2018-11-09 | Outpatient (CLI) | payer OTHER ==
[~2018-11-09] MED LIST changes: +MELO15TA39 PO
--- NOTE | 2018-11-09 10:19 | Diagnostic Imaging Report ---
PROCEDURE: MRI right joint lower extremity without contrast. TECHNIQUE: Multiplanar, multisequence non contrast-enhanced MRI of the right lower extremity was accomplished. INDICATION: Fractured leg May 2018. Right knee pain, swelling, popping, and hyperextension. EXAMINATION: MRI of the right knee without contrast dated 11/09/2018 FINDINGS: The extensor mechanism is intact. The PCL is somewhat heterogeneous likely due to degenerative signal. The ACL demonstrates some heterogeneity as well especially along its proximal aspect. Complete discontinuity is not appreciated but a partial proximal tear is suspected. There is a lobular hypointensity noted within the anterior aspect of the joint which could represent a portion of displaced ACL material. This is seen on image 8 of 12 on the sagittal T2 ACL sequence. The medial meniscus demonstrates multidirectional abnormal signal intensity consistent with a tear. Mild heterogeneity within the anterior horn is noted. The lateral meniscus also demonstrates abnormal signal intensity diffusely especially throughout the posterior horn. This extends down to the tibial surface consistent with a tear. There is subchondral edema and cystic change throughout the posterior aspect of the medial femoral condyle consistent with degenerative disease. The remaining medial compartment demonstrates minimal heterogeneity of the cartilage. However, there is a more focal defect seen along the weightbearing surface of the medial femoral condyle which measures 3.3 mm in transverse dimension. This extends to the cortex. Lateral compartment cartilage is maintained. Patellofemoral cartilage is maintained as well. It is for the most part maintained as well. Minimal irregularity seen overlying the medial facet. There is a moderate sized joint effusion. There is no acute osseous abnormality. IMPRESSION: 1. Diffuse multidirectional tear involving much of the posterior horn and portions of the body of the medial meniscus. A large radial component is noted not mentioned above. 2. Lateral meniscus demonstrates myxoid degeneration. Small undersurface tear along the posterior horn is suspected. 3. Irregularity along the ACL which is possibly due to a partial tear. Correlate with symptoms. No complete discontinuity is appreciated. 4. Degenerative findings as described with a joint effusion also noted. Other findings as above. Dictated by: Dictated on workstation # [id number]
== END ==
LOC: RAD 08:46
PROVIDERS: ATTEND Nurse Practitioner
DX: M23.300 Other meniscus derangements, unspecified lateral meniscus, right knee (principal); M23.221 Derangement of posterior horn of medial meniscus due to old tear or injury, right knee; M89.9 Disorder of bone, unspecified; M23.51 Chronic instability of knee, right knee; Z87.81 Personal history of (healed) traumatic fracture
CPT/HCPCS: 73721

== ENCOUNTER 2019-02-16 10:19 | Emergency (ER) | payer SELFPAY ==
[~2019-02-16] VITALS: Ht 172 cm; Wt 108.0 kg
[2019-02-16] MEDS ORDERED: PROMETHAZINE/ CODEINE SYRUP 5 ML UDC PO ONE (10:45)
--- NOTE | 2019-02-16 10:47 | ED Cough/URI ---
General Chief Complaint: Cough/Cold/Flu Symptoms Stated Complaint: COUGH Source: patient Exam Limitations: no limitations History of Present Illness Date Seen by Provider: Feb 16, 2019 Time Seen by Provider: 10:46 Initial Comments To ER with reports of productive cough 1 month periods of health a few weeks ago and was given Tessalon Perles which have not helped. He does not smoke, use to vape date after getting out of addiction treatment [facility] at [place], but quit doing that within the past one to 2 weeks when this seemed to be worse. Timing/Duration: getting worse Severity/Quality: moderate, productive cough Associated Symptoms: cough, shortness of breath Allergies and Home Medications Allergies Coded Allergies: No Known Drug Allergies (Unverified , 06/24/14) Home Medications Amlodipine Besylate 5 Mg Tablet, 5 MG PO DAILY, (Reported) Aspirin 81 Mg Tab.chew, 81 MG PO DAILY@0900 Prescribed by: ANIBAL GILMORE on 01/15/18 1022 Atorvastatin Calcium 40 Mg Tablet, 40 MG PO HS Prescribed by: ANIBAL GILMORE on 01/15/18 0903 Azithromycin 250 Mg Tablet, 250 MG PO UD TAKE 2 TABLETS ON DAY ONE THEN TAKE 1 TABLET DAILY FOR FOUR MORE DAYS Prescribed by: FERNANDEZ ENRIQUE on 02/16/19 1111 Dextromethorphn/Acetaminoph/Cp 1 Each Tablet, 2 EACH PO Q4H PRN for COUGH Prescribed by: FERNANDEZ ENRIQUE on 02/16/19 1111 Ibuprofen 200 Mg Tablet, 400-600 MG PO TID PRN for PAIN-MILD, (Reported) Meloxicam 15 Mg Tablet, 15 MG PO DAILY Prescribed by: FERNANDEZ ENRIQUE on 10/16/18 1534 Metformin HCl 500 Mg Tablet, 500 MG PO BID Prescribed by: ANIBAL GILMORE on 01/15/18 0903 Prednisone 20 Mg Tab, 40 MG PO DAILY Prescribed by: FERNANDEZ ENRIQUE on 02/16/19 1111 Patient Home Medication List Home Medication List Reviewed: Yes Review of Systems Review of Systems Constitutional: see HPI, chills EENTM: see HPI Respiratory: see HPI, cough Cardiovascular: no symptoms reported Genitourinary: no symptoms reported Musculoskeletal: no symptoms reported Skin: no symptoms reported Psychiatric/Neurological: No Symptoms Reported Hematologic/Lymphatic: No Symptoms Reported Immunological/Allergic: no symptoms reported Past Tayhseh-Joduyo-Wxaalg Hx Patient Social History 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 2nd Hand Smoke Exposure: No Recent Foreign Travel: No Contact w/Someone Who Travel: No Recent Hopitalizations: Yes (C/P) Seasonal Allergies Seasonal Allergies: No Past Medical History Surgeries: Yes Gallbladder Respiratory: No Cardiac: Yes Hypertension Neurological: Yes Headaches /Migraines Genitourinary: No Gastrointestinal: Yes Gastroesophageal Reflux Musculoskeletal: Yes (CHRONIC NECK PAIN) Arthritis, Chronic Back Pain Endocrine: Yes Cancer: No Psychosocial: Yes (sees sreedhar at [facility]) Anxiety, PTSD, Bipolar, Depression Blood Disorders: No Family Medical History Heart Disease, Cancer, CAD Under 55 Years Old, Diabetes, Renal Disease Physical Exam Vital Signs - First Documented 02/16/19 10:34 Temp 36.5 Pulse 99 Resp 18 B/P (MAP) 145/102 Pulse Ox 98 O2 Delivery Room Air Capillary Refill : Height: 5'9.00" Weight: 242lbs. 0oz. 109.577382vt; 35.4 BMI Method:Actual General Appearance: WD/WN, no apparent distress Eyes: Bilateral Eye Normal Inspection, Bilateral Eye PERRL, Bilateral Eye EOMI Progress/Results/Core Measures Suspected Sepsis SIRS Temperature: Pulse: Respiratory Rate: Blood Pressure / Mean: Results/Orders My Orders Orders - FERNANDEZ ENRIQUE APRN Promethazine/ Codeine Syrup (Phenergan W (02/16/19 10:45) Chest Pa/Lat (2 View) (02/16/19 10:45) Medications Given in ED Current Medications Medications Dose Ordered Sig/Betty Route Start Time Stop Time Status Last Admin Dose Admin Promethazine HCl/ Codeine 7.5 ml ONCE ONCE PO 02/16/19 10:45 02/16/19 10:47 DC 02/16/19 11:06 7.5 ML Vital Signs/I&O 02/16/19 10:34 Temp 36.5 Pulse 99 Resp 18 B/P (MAP) 145/102 Pulse Ox 98 O2 Delivery Room Air Capillary Refill : Departure Impression Primary Impression: Bronchitis Disposition: 01 HOME, SELF-CARE Condition: Stable Departure-Patient Inst. Decision time for Depature: 11:08 Referrals: NO,LOCAL PHYSICIAN (PCP/Family) Primary Care Physician Patient Instructions: Acute Bronchitis, Adult (DC) Add. Discharge Instructions: 1. Steroids and antibiotic as directed 2. Return to ER for any concerns 3. Follow-up with week 4. All discharge instructions reviewed with patient and/or family. Voiced understanding. Scripts Dextromethorphn/Acetaminoph/Cp (Coricidin Hbp Flu Tablet) 1 Each Tablet 2 EACH PO Q4H PRN for COUGH, #20 TAB Prov: FERNANDEZ ENRIQUE APRN 02/16/19 Prednisone (Prednisone) 20 Mg Tab 40 MG PO DAILY, #8 TAB 0 Refills Prov: FERNANDEZ ENRIQUE APRN 02/16/19 Azithromycin (Azithromycin) 250 Mg Tablet 250 MG PO UD, #6 TAB TAKE 2 TABLETS ON DAY ONE THEN TAKE 1 TABLET DAILY FOR FOUR MORE DAYS Prov: FERNANDEZ ENRIQUE APRN 02/16/19 Work/School Note: Work Release Form Date Seen in the Emergency Department: Feb 18, 2019 Return to Work: Feb 16, 2019 FERNANDEZ ENRIQUE APRN Feb 16, 2019 10:47
--- NOTE | 2019-02-16 11:06 | Diagnostic Imaging Report ---
INDICATION: Cough. Pneumonia. COMPARISON: 01/14/2018 FINDINGS: Frontal and lateral views of the chest demonstrate normal heart size and pulmonary vascularity. The lungs are clear. There are no signs of infiltrate, pleural effusions or pneumothoraces. The visualized osseous structures show no acute abnormalities. IMPRESSION: 1. No acute process. No signs of infiltrates, effusions or pneumothoraces. Dictated by: Dictated on workstation # [id number]
[2019-02-16] MEDS ORDERED: AZIT250T12 PO (11:11)
[2019-02-16] MEDS ORDERED: DEXT1TAB14 PO (11:11)
[2019-02-16] MEDS ORDERED: PRD20T PO (11:11)
[2019-02-16 11:16] VITALS: BP 170/99
== END 2019-02-16 11:16 | disposition home or self-care (01) ==
LOC: EDUNIT# 10:19 → ER 10:21
DX: J40 Bronchitis, not specified as acute or chronic (principal); I10 Essential (primary) hypertension; G43.909 Migraine, unspecified, not intractable, without status migrainosus; K21.9 Gastro-esophageal reflux disease without esophagitis; F41.9 Anxiety disorder, unspecified; F43.10 Post-traumatic stress disorder, unspecified; F31.9 Bipolar disorder, unspecified; Z79.82 Long term (current) use of aspirin; Z79.84 Long term (current) use of oral hypoglycemic drugs; Z82.49 Family history of ischemic heart disease and other diseases of the circulatory system
CPT/HCPCS: 71046

== ENCOUNTER 2019-02-23 12:50 | Emergency (ER) | payer OTHER ==
[~2019-02-23] VITALS: Ht 175 cm; Wt 109.0 kg
[~2019-02-23 12:50] MED LIST changes: +AZIT250T12 PO; +DEXT1TAB14 PO; +PRD20T PO
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
[2019-02-23] MEDS ORDERED: [UNRECOGNIZED DRUG - CODE] MC (13:14)
[2019-02-23 13:19] VITALS: BP 173/99
== END 2019-02-23 13:19 | disposition home or self-care (01) ==
LOC: EDUNIT# 12:50 → ER 12:51
DX: B35.6 Tinea cruris (principal); I10 Essential (primary) hypertension; G43.909 Migraine, unspecified, not intractable, without status migrainosus; K21.9 Gastro-esophageal reflux disease without esophagitis; F41.9 Anxiety disorder, unspecified; F43.10 Post-traumatic stress disorder, unspecified; F31.9 Bipolar disorder, unspecified; Z88.0 Allergy status to penicillin; Z82.49 Family history of ischemic heart disease and other diseases of the circulatory system
CPT/HCPCS: 99281

== ENCOUNTER → 2019-12-14 | Outpatient (CLI) | payer SELFPAY ==
[~2019-12-14] MED LIST changes: +CATHETER FLUSH 10 ML SYR IV PRN; +HOLD METFORMIN - RECEIVED CONTRAST 20 ML VIAL IV SCH; +IOHEXOL 350 MG/ML 100 ML (OMNIPAQUE 350) VIAL IV ONE; +NS 100 ML (IVPB) BAG IV ONE; +[UNRECOGNIZED DRUG - CODE] MC
--- NOTE | 2019-12-14 11:41 | Diagnostic Imaging Report ---
PROCEDURE: CT abdomen and pelvis with contrast. TECHNIQUE: Multiple contiguous axial images were obtained through the abdomen and pelvis after administration of intravenous contrast. Auto Exposure Controls were utilized during the CT exam to meet ALARA standards for radiation dose reduction. INDICATION: Lower abdominal and pelvic pain. Bloating, nausea, and constipation. Patient with history of hepatitis C. COMPARISON: CT angio chest performed on 01/14/2018. FINDINGS: LOWER THORAX: There is a benign calcified granuloma in the left lower lobe. Just inferior to this in the lateral segment of the left lower lobe is an unchanged 3 mm subpleural nodule. There is also an unchanged 3 mm subpleural nodule in the posterior segment of the right lower lobe. No further follow-up of these nodules was recommended, per Fleischner guidelines. Visualized heart is normal in size. LIVER: There is diffuse low attenuation of the hepatic parenchyma. There is a subcentimeter focus of low attenuation in the right hepatic dome (image 8 series 2). There is also an ill-defined area of low attenuation adjacent to the right hepatic vein, which is only well seen on delayed imaging (image 22 series 3). These were not seen on the prior exam. GALLBLADDER: Surgically absent. BILE DUCTS: There is mild prominence of the proximal common duct, unchanged from prior exam and physiologic post cholecystectomy. There is no intrahepatic biliary ductal dilatation. SPLEEN: Normal. PANCREAS: Normal. No pancreatic ductal dilatation. ADRENAL GLANDS: No nodules. KIDNEYS AND URETERS: No hydronephrosis. Normal renal enhancement. No suspicious mass. Visualized ureters are normal. STOMACH AND BOWEL: Stomach is physiologically-distended. No bowel obstruction. No inflammatory changes. No prominent diverticular disease is appreciated. APPENDIX: Normal. PELVIC ORGANS/BLADDER: Bladder is normal. The prostate gland is top normal in size. PERITONEUM AND RETROPERITONEUM: No pneumoperitoneum. No abdominal free fluid or loculated collection. LYMPH NODES: No lymphadenopathy. VESSELS: Abdominal aorta is nonaneurysmal. No venous thrombosis. ABDOMINAL WALL: There is mild focal inflammatory change on either side of midline in the subcutaneous fat of the ventral abdominal wall at the level of the umbilicus. There is mild superficial skin thickening in these areas of inflammatory change in the subcutaneous fat. No focal fluid collection is demonstrated. BONES: Multilevel degenerative changes involve the spine. No acute osseous abnormality. IMPRESSION: There is diffuse hepatic steatosis. Ill-defined subcentimeter foci of low attenuation are demonstrated in the right hepatic lobe, as detailed above. These are indeterminate based on the current exam, and given patient's reported history of hepatitis C, further evaluation with hepatic protocol MRI is recommended in 3-6 months, per [employer] Incidental Findings Committee white paper management recommendations (JACR 2017;14:[id number]). There is focal mild inflammatory change in the subcutaneous fat of the ventral abdominal wall at the level of the umbilicus, with associated superficial skin thickening. Findings may reflect cellulitis. There is no underlying focal fluid collection or other abnormality. CT of the abdomen and pelvis is otherwise unremarkable. Chronic and incidental findings are detailed above. Dictated by: Dictated on workstation # [id number]
== END ==
LOC: RAD 09:10
PROVIDERS: ATTEND Nurse Practitioner Family
DX: K57.30 Diverticulosis of large intestine without perforation or abscess without bleeding (principal); K58.2 Mixed irritable bowel syndrome; K76.0 Fatty (change of) liver, not elsewhere classified; K59.00 Constipation, unspecified; R19.7 Diarrhea, unspecified; K43.9 Ventral hernia without obstruction or gangrene
CPT/HCPCS: 74177

== ENCOUNTER 2020-01-26 23:48 | Emergency (ER) | payer OTHER ==
[~2020-01-26 23:48] MED LIST changes: -CATHETER FLUSH 10 ML SYR IV PRN; -HOLD METFORMIN - RECEIVED CONTRAST 20 ML VIAL IV SCH; -IOHEXOL 350 MG/ML 100 ML (OMNIPAQUE 350) VIAL IV ONE; -NS 100 ML (IVPB) BAG IV ONE
[2020-01-27] MEDS ORDERED: fentaNYL INJECTION 100 MCG/2 ML AMP ONE (00:10)
[2020-01-27] MEDS ORDERED: NS IV 1000 ML 1,000 ML ONE (00:14)
[2020-01-27] MEDS ORDERED: TETANUS,DIPTH,PERTUSS P/F (BOOSTRIX) 0.5 ML VIAL IM ONE (00:29)
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
[2020-01-27 16:48] LABS: BASOPHILS % (AUTO) 0 % (0-10); EOSINOPHILS # (AUTO) 0.1 10^3/uL (0.0-0.3); EOSINOPHILS % (AUTO) 1 % (0-10); HEMATOCRIT 44 % (40-54); HEMOGLOBIN 15.7 G/DL (13.3-17.7); LYMPHOCYTES # (AUTO) 2.1 X 10^3 (1.0-4.0); LYMPHOCYTES % (AUTO) 22 % (12-44); MEAN CORPUSCULAR HEMOGLOBIN 29 PG (25-34); MEAN CORPUSCULAR HGB CONC 36 G/DL (32-36); MEAN CORPUSCULAR VOLUME 81 FL (80-99); MEAN PLATELET VOLUME 9.8 FL (7.4-10.4); MONOCYTES # (AUTO) 0.7 X 10^3 (0.0-1.0); MONOCYTES % (AUTO) 8 % (0-12); NEUTROPHILS # (AUTO) 6.4 X 10^3 (1.8-7.8); NEUTROPHILS % (AUTO) 69 % (42-75); PLATELET COUNT 233 10^3/uL (130-400); RED CELL DISTRIBUTION WIDTH 13.6 % (10.0-14.5); WHITE BLOOD COUNT 9.3 10^3/uL (4.3-11.0)
[2020-01-27 16:49] LABS: SODIUM 139 MMOL/L (135-145)
[2020-01-27 16:50] LABS: ALANINE AMINOTRANSFERASE 50 U/L (0-55); ALBUMIN 4.7 GM/DL (3.2-4.5); ALKALINE PHOSPHATASE 68 U/L (40-136); BILIRUBIN,TOTAL 0.5 MG/DL (0.1-1.0); BUN/CREATININE RATIO 19; CALCIUM 9.7 MG/DL (8.5-10.1); CARBON DIOXIDE 22 MMOL/L (21-32); CHLORIDE 103 MMOL/L (98-107); GFR ESTIMATED > 60; GLUCOSE 304 MG/DL (70-105); TOTAL PROTEIN 7.8 GM/DL (6.4-8.2)
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
== END 2020-01-27 02:00 | disposition home or self-care (01) ==
LOC: EDUNIT# 23:48 → ER 23:48
DX: S13.4XXA Sprain of ligaments of cervical spine, initial encounter (principal); S50.311A Abrasion of right elbow, initial encounter; S20.319A Abrasion of unspecified front wall of thorax, initial encounter; M25.532 Pain in left wrist; M25.561 Pain in right knee; V20.4XXA Motorcycle driver injured in collision with pedestrian or animal in traffic accident, initial encounter
CPT/HCPCS: 70450; 71045; 71260; 72125; 72170; 73110; 73562; 80053; 85025; 90471; 96361; 96374; 99285; G0480; 36415; 80320

== ENCOUNTER 2020-12-29 10:56 | Outpatient (CLI) | payer OTHER ==
[2020-12-29 10:53] VITALS: BP 143/80
[~2020-12-29 10:56] MED LIST changes: +AMLO-250 PO; -AMLO5TAB9 PO
[2020-12-29] MEDS ORDERED: EPINEPHrine INJECTION 1 MG/ML AMP IM PRN (11:00)
[2020-12-29] MEDS ORDERED: diphenhydrAMINE 50 MG/ML INJ (BENADRYL) IV PRN (11:00)
[2020-12-29] MEDS ORDERED: CASIRIVIMAB/IMDEVIMAB 1,200 MG in NS (IVPB) 250 ML IV ONE (11:00)
[2020-12-29 12:41] VITALS: BP 139/75
== END 2020-12-29 13:00 ==
LOC: INFUSION 10:56
PROVIDERS: ATTEND Nurse Practitioner Family
DX: Z23 Encounter for immunization (principal); U07.1 COVID-19